=== PATIENT | male | born 1960 | race Caucasian/White ===

== ENCOUNTER 2018-09-06 11:51 | Inpatient (IN) ==
[2018-09-06] MEDS ORDERED: methylPREDNISolone 125 MG/2 ML VIAL IVP ONE (12:57)
[2018-09-06] MEDS ORDERED: Ipratropium/Albuterol Neb 3 ML IH ONE (12:57)
[2018-09-06] MEDS ORDERED: Piperacillin/Tazobactam 3.375 GM in 0.9 % Sodium Chloride Mini Bag 100 ML IVPB ONE (13:01)
--- NOTE | 2018-09-06 13:03 | Emergency Department Note ---
Disposition Clinical Impression: COPD exacerbation, Finger infection Disposition: Admitted As Inpatient Condition: Good Referrals: Agatha Upton CNP [Primary Care Provider] - Forms: ED Satisfaction Letter General Adult HPI - General Chief complaint: ED Shortness of Breath/Dyspnea Stated complaint: COPD,Nausea,Weakness Time Seen by Provider: 09/06/18 12:49 Source: patient Limitations: no limitations Nursing Notes Reviewed: Yes Vital Signs Reviewed: Yes - History of Present Illness HPI Narrative: Patient with significant past medical history including BMI 52, COPD followed by pulmonology at [facility]. Had started feeling short of breath on Monday. Patient had a fall over the weekend. Patient underwent evaluation and was placed on Augmentin. Patient was following up with [facility]. Finger appears to have infection that will need to in the OR. Patient is also having a COPD exacerbation with associated wheezing and shortness of breath worse with exertion. At this time the patient does have significant wheezing bilaterally. He will likely need admission for COPD exacerbation. I did discuss the case with Dr. Lawler. Patient will also undergo debridement of his wound while in the hospital. Pain Scale: 10 - Related Data Home Medications Medication Instructions Recorded Confirmed Gabapentin [Neurontin] 100 mg PO TID 07/25/16 07/25/16 Lisinopril [Zestril] 20 mg PO DAILY 07/25/16 07/25/16 Metoprolol [Lopressor] 25 mg PO BID 07/25/16 07/25/16 hydroCHLOROthiazide 25 mg PO DAILY 07/25/16 07/25/16 [Hydrochlorothiazide] Previous Rx's Medication Instructions Recorded Albuterol Neb [Proventil Neb] 2.5 mg IH Q4HR #40 vial.neb 07/25/16 Ciprofloxacin [Cipro] 500 mg PO BID #20 tablet 07/25/16 Promethazine/Dextromethorphan 5 ml PO Q4-6H #480 syrup 07/25/16 [Promethazine-Dm Syrup] predniSONE [PredniSONE] 40 mg PO DAILY #10 tablet 07/25/16 Allergies Allergy/AdvReac Type Severity Reaction Status Date / Time No Known Allergies Allergy Verified 09/06/18 12:20 Review of Systems: CONSTITUTIONAL: Fevers, chills, weakness, fatigue HEENT: Eyes: No visual changes. Ears, Nose, Throat: No hearing loss, difficulty talking or unable to swallow. SKIN: Infection to the left fourth and fifth digits of the hand as well as cellulitis behind the right knee. CARDIOVASCULAR: No chest pain, chest pressure or chest discomfort. No palpitations or edema. RESPIRATORY: Shortness of breath with cough but no sputum production. GASTROINTESTINAL: No anorexia, nausea, vomiting or diarrhea. No abdominal pain or blood. GENITOURINARY: No burning on urination or hematuria. NEUROLOGICAL: No headache, dizziness, syncope, paralysis, ataxia, numbness or tingling in the extremities. No change in bowel or bladder control. MUSCULOSKELETAL: No muscle pain, back pain, joint pain or stiffness. Past Medical History - Past Medical History Medical history: Reports: COPD, hypertension Surgical history: Reports: colectomy, herniorrhaphy, prostatectomy Psychiatric history: Reports: no psych history - Social History Smoking Status: Former smoker Smokeless Tobacco Status: No Alcohol use: Reports: rarely Drug use: Reports: none Physical Exam General: Mild to moderate respiratory distress but able to talk in near complete sentences. Head: Normocephalic Atraumatic Eyes: PERRL, EOMI ENT: Airway patent, no stridor Neck: supple, no meningismus Chest: Diffuse inspiratory and expiratory wheezing. Cardiac: Regular rate and rhythm, no murmurs, rubs or gallops Abdomen: soft, nontender, nondistended; no guarding, rebound, or tenderness to percussion Musculoskeletal: Calves symmetric, nontender. Skin: Left hand fourth digit with laceration concern for infection. Left fifth digit with partial amputation necrotic tissue to the distal aspect with associated purulent drainage and erythema that extends to the most proximal knuckle. Mild cellulitis to behind the left knee with full range of motion and no underlying crepitus or induration. Neuro: Alert and Oriented to person, place, and time; No obvious focal deficit. - General Limitations: no limitations General appearance: alert, in no apparent distress Course - Reevaluation(s) Reevaluation #1: Overall breathing improved. Patient with lung mass to the left upper chest. Patient will need further evaluation of this in the future. - Consultations Consultation #1: Discussed with Dr. Lawler. Patient to go to the OR for debridement for further and infection source control. Patient to be admitted for COPD exacerbation he will consult on the floor. Consultation #2: Discussed with hospitalistTHALIA, patient accepted for admission. Vital Signs Temperature 98 F 09/06/18 12:16 Pulse Rate 73 09/06/18 12:16 Respiratory Rate 18 09/06/18 12:16 Blood Pressure 202/86 09/06/18 12:16 O2 Sat by Pulse Oximetry 96 09/06/18 12:16 Temperature 98 F 09/06/18 12:16 Pulse Rate 73 09/06/18 12:16 Respiratory Rate 18 09/06/18 12:16 Blood Pressure 202/86 09/06/18 12:16 O2 Sat by Pulse Oximetry 96 09/06/18 12:16 Oxygen Delivery Oxygen Delivery Room Air Medical Decision Making - Lab Data Result diagrams: 09/06/18 12:48 09/06/18 12:48 Lab Results 09/06/18 09/06/18 09/06/18 Range/Units 12:48 12:48 12:48 WBC 6.2 (4.3-11.1) K/mcL RBC 4.75 (4.19-5.50) M/mcL Hgb 14.2 (12.9-16.9) g/dL Hct 41.4 (37.5-50.1) % MCV 87.2 (83.0-100.0) fL MCH 29.9 (28.0-33.3) pg MCHC 34.3 (31.6-35.5) g/dL RDW 13.0 (11.5-14.5) % Plt Count 163 (140-400) K/mcL MPV 10.6 (9.4-12.4) fL Immature Gran % 0.5 (0-4) % Seg Neutrophils % 73.6 % Lymphocytes % 16.5 % Monocytes % 8.6 % Eosinophils % 0.5 % Basophils % 0.3 % Neutrophils # 4.6 (1.6-8.9) K/mcL Lymphocytes # 1.0 (0.6-4.6) K/mcL Monocytes # 0.5 (0.0-1.3) K/mcL Eosinophils # 0.0 (0.0-0.6) K/mcL Basophils # 0.0 (0.0-0.2) K/mcL ESR (0-10) mm/hr Sodium 137 (136-145) mEq/L Potassium 3.5 (3.5-5.1) mEq/L Chloride 102 (98-107) mEq/L Carbon Dioxide 28 (23-29) mEq/L BUN 14 (6-20) mg/dL Creatinine 0.61 L (0.70-1.30) mg/dL Est GFR ( Amer) > 60 (> 60) Est GFR (Non-Af Amer) > 60 (> 60) BUN/Creatinine Ratio 23 (6-26) Glucose 112 H (70-105) mg/dL Calculated Osmolality 285 (280-300) Lactic Acid 0.9 (0.5-2.2) mmol/L Calcium 9.3 (8.6-10.3) mg/dL Troponin I 0.03 (< 0.04) ng/mL C-Reactive Protein 14 H (Less than 10) mg/L B-Natriuretic Peptide (Less than 100) pg/mL 09/06/18 09/06/18 Range/Units 12:48 12:48 WBC (4.3-11.1) K/mcL RBC (4.19-5.50) M/mcL Hgb (12.9-16.9) g/dL Hct (37.5-50.1) % MCV (83.0-100.0) fL MCH (28.0-33.3) pg MCHC (31.6-35.5) g/dL RDW (11.5-14.5) % Plt Count (140-400) K/mcL MPV (9.4-12.4) fL Immature Gran % (0-4) % Seg Neutrophils % % Lymphocytes % % Monocytes % % Eosinophils % % Basophils % % Neutrophils # (1.6-8.9) K/mcL Lymphocytes # (0.6-4.6) K/mcL Monocytes # (0.0-1.3) K/mcL Eosinophils # (0.0-0.6) K/mcL Basophils # (0.0-0.2) K/mcL ESR 24 H (0-10) mm/hr Sodium (136-145) mEq/L Potassium (3.5-5.1) mEq/L Chloride (98-107) mEq/L Carbon Dioxide (23-29) mEq/L BUN (6-20) mg/dL Creatinine (0.70-1.30) mg/dL Est GFR ( Amer) (> 60) Est GFR (Non-Af Amer) (> 60) BUN/Creatinine Ratio (6-26) Glucose (70-105) mg/dL Calculated Osmolality (280-300) Lactic Acid (0.5-2.2) mmol/L Calcium (8.6-10.3) mg/dL Troponin I (< 0.04) ng/mL C-Reactive Protein (Less than 10) mg/L B-Natriuretic Peptide 161 H (Less than 100) pg/mL
[2018-09-06 13:21] LABS: Basophils % 0.3 %; Eosinophils % 0.5 %; Hematocrit 41.4 % (37.5-50.1); Hemoglobin 14.2 g/dL (12.9-16.9); Immature Granulocytes % 0.5 % (0-4); Lymphocytes % 16.5 %; Mean Corpuscular HGB Conc 34.3 g/dL (31.6-35.5); Mean Corpuscular Hemoglobin 29.9 pg (28.0-33.3); Mean Corpuscular Volume 87.2 fL (83.0-100.0); Mean Platelet Volume 10.6 fL (9.4-12.4); Monocytes # 0.5 K/mcL (0.0-1.3); Monocytes % 8.6 %; Neutrophils # 4.6 K/mcL (1.6-8.9); Platelet Count 163 K/mcL (140-400); Red Blood Count 4.75 M/mcL (4.19-5.50); Segmented Neutrophils % 73.6 %
[2018-09-06 13:27] LABS: BUN/Creatinine Ratio 23 (6-26); Blood Urea Nitrogen 14 mg/dL (6-20); Calcium 9.3 mg/dL (8.6-10.3); Carbon Dioxide 28 mEq/L (23-29); Chloride 102 mEq/L (98-107); Glucose 112 mg/dL (70-105); Osmolality,Calculated 285 (280-300); Potassium 3.5 mEq/L (3.5-5.1); Sodium 137 mEq/L (136-145); Troponin I 0.03 ng/mL (< 0.04); eGFR For Non-African Americans > 60 (> 60)
[2018-09-06 13:45] LABS: C-Reactive Protein 14 mg/L (Less than 10)
[2018-09-06] MEDS ORDERED: Naloxone 0.4 MG/ML INJ IVP PRN (14:41)
[2018-09-06] MEDS ORDERED: Acetaminophen 325 MG TABLET PO PRN (14:47)
[2018-09-06] MEDS ORDERED: Ondansetron 4 MG/2 ML VIAL IVP PRN (14:47)
--- NOTE | 2018-09-06 15:07 | Internal Med History&Physical ---
Date of Encounter: 09/06/18 Time of Encounter: 14:30 Internal Medicine - H&P: HPI Chief complaint: SOB, L finger infection Admitted From: Home History of present illness: Mr. Delgado is a 58 year old male with history of hypertension, COPD, morbid obesity who presented to the ED from orthopedic clinic due to shortness of breath. Pt was seeing Dr. Sifuentes today for left fourth and fifth finger infection he noticed that patient was having difficult time breathing and advised the patient to go to the ED for further evaluation. Patient states that he has been having trouble breathing for the last 2 days, associated with cough but without significant sputum production. Denies any chest pain, orthopnea, PND, or worsening leg swelling. No flulike symptoms or sick contacts. He was also on oral Augmentin for his left finger infection that is not resolving and he is being planned for possible washout during the admission. In the ED, he was afebrile and hemodynamically stable. Labwork showed normal white blood cell count and slightly elevated ESR and CRP. Normal lactic acid. Troponin negative. Chest x-ray was negative for acute cardiopulmonary process. He was given IV Solu-Medrol and bronchodilator as well as vanc/zosyn then admitted for further mx with orthopedic consultation. Past Med Surg Social Fam HX - Past Medical History Attestation: Yes The following information was validated with the patient. Medical history: COPD, hypertension Additional medical history: carpal tunnel Psychiatric history: no psych history - Past Surgical History Surgical History: colectomy, herniorrhaphy, prostatectomy Additional surgical history: RIH repair, exploratory lap - Social History Smoking Status: Former smoker Smokeless Tobacco Status: No Alcohol use: rarely Drug use: none - Additional Family History Additional family history: Reviewed and noncontributory Internal Medicine - H&P: Meds Gabapentin [Neurontin] 100 mg PO TID 07/25/16 [History] Metoprolol [Lopressor] 25 mg PO BID 07/25/16 [History] Promethazine/Dextromethorphan [Promethazine-Dm Syrup] 5 ml PO Q4-6H #480 syrup 07/25/16 [Rx] RX: Albuterol Neb [Proventil Neb] 2.5 mg IH Q4HR #40 vial.neb 07/25/16 [Rx] RX: Ciprofloxacin [Cipro] 500 mg PO BID #20 tablet 07/25/16 [Rx] RX: Lisinopril [Zestril] 20 mg PO DAILY 07/25/16 [History] RX: hydroCHLOROthiazide [Hydrochlorothiazide] 25 mg PO DAILY 07/25/16 [History] RX: predniSONE [PredniSONE] 40 mg PO DAILY #10 tablet 07/25/16 [Rx] Allergy/AdvReac Type Severity Reaction Status Date / Time No Known Allergies Allergy Verified 09/06/18 12:20 All Systems PM: A 10-system review of systems was performed and is negative for pertinent findings except as documented above in the HPI. - Constitutional Vitals: Temp Pulse Resp BP Pulse Ox 98 F 78 18 146/62 96 09/06/18 12:16 09/06/18 14:33 09/06/18 14:33 09/06/18 14:33 09/06/18 14:33 Exam: General: Alert and oriented, not in acute distress. HEENT:EOMI, pupils equal, round and reactive. Cardiovascular:Normal S1 & S2, No JVD. Pulse regular. Lungs: Bilateral wheezes Abdomen:Soft, non-tender, no rigidity. Extremities: Left fourth and fifth finger in dressing which is clean, dry, and intact Neurological:Normal cognition and motor skills. Non-focal Skin:Normal color, no rash, no lesions. Pulses:Carotid and radial pulses normal +2. Rest of the physical exam is non contributory Internal Med - H&P Results - Labs CBC & Chem 7: 09/06/18 12:48 09/06/18 12:48 Labs: Short CBC 09/06/18 Range/Units 12:48 WBC 6.2 (4.3-11.1) K/mcL Hgb 14.2 (12.9-16.9) g/dL Hct 41.4 (37.5-50.1) % Plt Count 163 (140-400) K/mcL Neutrophils # 4.6 (1.6-8.9) K/mcL BMP 09/06/18 12:48 Sodium 137 Potassium 3.5 Chloride 102 Carbon Dioxide 28 BUN 14 Creatinine 0.61 L Glucose 112 H Calcium 9.3 Cardiac Enzymes 09/06/18 Range/Units 12:48 Troponin I 0.03 (< 0.04) ng/mL - Impressions ITS Impressions Chest X-Ray 09/06/18 12:21 IMPRESSION: 1. Cardiomegaly without failure. 2. Noncalcified 2.5 cm mass involving the left upper lobe is concerning for malignancy. Tissue sampling is indicated. D/ / 09/06/2018 13:28:42 Fox Torres MD / rae Interpreting Provider: Fox Torres MD - Assessment and Plan (1) COPD exacerbation Current Visit: Yes Status: Acute Assessment and plan: mild exacerbation of COPD not on supplemental O2, CXR -ve for infiltrates given steroid and bronchodilators in the ED, continue abx for finger infection as below Check respiratory viral panel (2) Finger infection Current Visit: Yes Status: Acute Assessment and plan: Failed outpatient therapy on oral Augmentin Started on vancomycin and Zosyn, continue Was seen in the orthopedic clinic today and plan for possible washout tomorrow. Nothing by mouth after midnight Follow-up on blood cultures (3) Mass of left lung Current Visit: Yes Status: Chronic Assessment and plan: Was seen on CT scan on 08/21 outpatient PET-CT (4) HTN (hypertension) Current Visit: No Status: Chronic Assessment and plan: Resume home meds once reconciled Qualifiers: Hypertension type: essential hypertension Qualified Code(s): I10 - Ess ential (primary) hypertension (5) Morbid obesity with BMI of 50.0-59.9, adult Current Visit: Yes Status: Chronic Assessment and plan: Lifestyle modifications emphasized (6) DVT prophylaxis Current Visit: Yes Status: Acute Assessment and plan: SQ heparin - Time Spent With Patient Total time spent is greater than 50% in coordination of care (as documented) at patient's floor/unit and/or counseling patient: 25 - 35 minutes
[2018-09-06] MEDS: Ipratropium/Albuterol Neb 3 ML IH SCH ×2 (15:17→20:39)
--- NOTE | 2018-09-06 17:27 | Orthopedics Progress Note ---
Date of Encounter: 09/06/18 Time of Encounter: 17:25 Subjective Interval history: S: Seen in the office earlier today now here in the emergency department. Less than a week ago injured the ring and small fingers while walking his dog, was the cord got wrapped around the digits causing the injury. Also sustained an injury to the back of the right knee. Wounds appear to have early infection though he went to the emergency department today due to a COPD exacerbation and is getting admitted. O: Afebrile on the vital signs are stable Left small finger with soft tissue loss and ring finger with ulnar sided laceration as described in my office note Neurovascularly intact distally; wound edges with mild erythema Right posterior knee wound, superficial abrasion with mild cellulitis. No drain able abscess. A: Left small finger and ring finger tip injuries, the left with tissue loss and likely exposed bone COPD exacerbation P: We will proceed to the operating room tomorrow for debridement and irrigation of the left ring and small fingers with trimming of the bone of the left small finger Nothing by mouth after midnight Continue antibiotics per the primary team for the cellulitis Objective Vital signs: Vital Signs Temp Pulse Resp BP Pulse Ox 09/06/18 15:38 73 18 146/61 95 09/06/18 14:33 78 18 146/62 96 09/06/18 12:16 98 F 73 18 202/86 96 Intake and Output 09/06/18 09/06/18 09/06/18 07:59 15:59 23:59 Intake Total 100 / 100 Balance 100 / 100 Intake: IV Fluids 100 / 100 Zosyn 3.375 GM In 0.9 % Sodium 100 / 100 Chloride (Mini-Bag +) 100 ML @ 25 mls/hr IVPB ONCE ONE Rx#: [id number] Other: Weight 147.418 kg Patient Weight 09/06/18 23:59 Weight 147.418 kg - Labs CBC & BMP: 09/06/18 12:48 09/06/18 12:48 Labs: Abnormal lab results ESR 24 mm/hr (0-10) H 09/06/18 12:48 Creatinine 0.61 mg/dL (0.70-1.30) L 09/06/18 12:48 Glucose 112 mg/dL (70-105) H 09/06/18 12:48 C-Reactive Protein 14 mg/L (Less than 10) H 09/06/18 12:48 B-Natriuretic Peptide 161 pg/mL (Less than 100) H 09/06/18 12:48 Consult Discharge Plan - Plan Referrals: Agatha Upton, PROFESSOR OF PUBLIC ADMINISTRATION [Primary Care Provider] -
[2018-09-06] MEDS: *HR* OxyCODONE Immed Rel 5 MG TABLET PO PRN (20:46)
[2018-09-06] MEDS: Piperacillin/Tazobactam 3.375 GM in 0.9 % Sodium Chloride Mini Bag 100 ML IVP SCH (22:35)
[2018-09-07] MEDS: Ipratropium/Albuterol Neb 3 ML IH SCH ×6 (00:10→19:24)
[2018-09-07 04:53] LABS: Eosinophils % 0.1 %; Hematocrit 42.2 % (37.5-50.1); Hemoglobin 14.3 g/dL (12.9-16.9); Lymphocytes # 0.8 K/mcL (0.6-4.6); Lymphocytes % 11.1 %; Mean Corpuscular HGB Conc 33.9 g/dL (31.6-35.5); Mean Corpuscular Volume 88.7 fL (83.0-100.0); Monocytes # 0.4 K/mcL (0.0-1.3); Monocytes % 5.6 %; Platelet Count 159 K/mcL (140-400); Red Blood Count 4.76 M/mcL (4.19-5.50); Red Cell Distribution Width 12.9 % (11.5-14.5); Segmented Neutrophils % 82.2 %
[2018-09-07 05:00] LABS: INR 1.1; Prothrombin Time 12.6 Seconds (9.4-12.1)
[2018-09-07 05:11] LABS: BUN/Creatinine Ratio 24 (6-26); Blood Urea Nitrogen 17 mg/dL (6-20); Calcium 9.1 mg/dL (8.6-10.3); Carbon Dioxide 28 mEq/L (23-29); Chloride 104 mEq/L (98-107); Glucose 125 mg/dL (70-105); Osmolality,Calculated 277 (280-300); Potassium 3.9 mEq/L (3.5-5.1); Sodium 132 mEq/L (136-145); eGFR For Non-African Americans > 60 (> 60)
[2018-09-07] MEDS: Piperacillin/Tazobactam 3.375 GM in 0.9 % Sodium Chloride Mini Bag 100 ML IVP SCH ×3 (06:38→22:39)
[2018-09-07] MEDS: MethylPREDNISolone 40 MG/ML VIAL IVP SCH ×2 (06:38→17:09)
[2018-09-07] MEDS: *HR* OxyCODONE Immed Rel 5 MG TABLET PO PRN ×3 (08:01→20:39)
[2018-09-07 08:48] LABS: Adenovirus Not Detected (Not Detect); Bordetella Pertussis Not Detected (Not Detect); Chlamydophila pneumoniae Not Detected (Not Detect); Coronavirus 229E Not Detected (Not Detect); Coronavirus HKU1 Not Detected (Not Detect); Coronavirus NL63 Not Detected (Not Detect); Coronavirus OC43 Not Detected (Not Detect); Human Metapneumovirus Not Detected (Not Detect); Human Rhinovirus/Enterovirus Not Detected (Not Detect); Influenza A Subtype 2009 H1 Not Detected (Not Detect); Influenza A Untypeable Not Detected (Not Detect); Influenza B Not Detected (Not Detect); Mycoplasma pneumoniae Not Detected (Not Detect); Parainfluenza Virus 1 Not Detected (Not Detect); Parainfluenza Virus 2 Not Detected (Not Detect); Parainfluenza Virus 3 Not Detected (Not Detect); Parainfluenza Virus 4 Not Detected (Not Detect); Respiratory Syncytial Virus Not Detected (Not Detect)
[2018-09-07] MEDS ORDERED: Lidocaine/EPI 1:100k 1% 20 ML VIAL ONE (12:05)
--- NOTE | 2018-09-07 14:41 | Internal Med Progress Note ---
Hospitalist Progress Note - Encounter Date of Encounter: 09/07/18 Time of Encounter: 09:45 - Subjective Interval History: Patient states his shortness of breath is significantly improved after steroids as treatment since he came in last night. He endorses dyspnea on exertion which has gotten worse since he was switched from his outpatient COPD management ( Breo to atrovent) and has been following with pulmonary medicine as an outpatient. - Exam Vitals: Temp Pulse Resp BP Pulse Ox 98.4 F 77 18 147/80 96 09/07/18 13:25 09/07/18 13:25 09/07/18 13:25 09/07/18 13:25 09/07/18 13:25 Exam: GENERAL: Alert, no distress, cooperative EYES: PERRLA, EOMI EARS: External ears normal, canals clear OROPHARYNX: Lips, mucosa, and tongue normal. Teeth and gums normal. Oropharynx normal. NECK: No jugulovenous distention, No carotid bruits, Carotid pulse normal contour, Supple LUNGS: Lungs clear to auscultation, Good diaphragmatic excursion CARDIAC: Normal S1 and S2; no rubs, murmurs, or gallops ABDOMEN: Abdomen soft, non-tender, BS normal, No masses or organomegaly EXTREMITIES: Extremities left hand little finger and ring finger has bandages on it and not removed for patient preference. There is significant erythema that is seen extending beyond the bandages on both these fingers as well as the middle finger with what appears to be scaling wounds as well. - Assessment and Plan (1) COPD exacerbation Current Visit: Yes Status: Acute Assessment and Plan: Continue steroids for now. Continue breathing treatments. Consider pulmonary consultation if his shortness of breath does not improve. Given his dyspnea on exertion, also going to check out a 2-D echo to make sure there is no cardiac component. If the echo is abnormal, consider cardio consultation (2) Finger infection Current Visit: Yes Status: Acute Assessment and Plan: He had an accidental amputation of his left little finger distally and subsequent infection for which she failed outpatient management of his middle finger, ring finger, middle finger. The plan is to take him to the OR today for debridement. He did receive antibiotics broad-spectrum and we will continue them until cultures are back. Pain control seems adequate at this point (3) HTN (hypertension) Current Visit: No Status: Chronic Assessment and Plan: Stable. Continue to monitor (4) Morbid obesity with BMI of 50.0-59.9, adult Current Visit: Yes Status: Chronic Assessment and Plan: Dietary education provided regarding obesity (5) DVT prophylaxis Current Visit: Yes Status: Acute (6) Mass of left lung Current Visit: Yes Status: Chronic Assessment and Plan: This will be deferred to outpatient. Apparently he has already had a biopsy and was told it was negative. To follow up with pulmonary as an outpatient upon discharge - Time Spent with Patient Total time spent is greater than 50% in coordination of care (as documented) at patient's floor/unit and/or counseling patient: 25 - 35 minutes Plan of Care Discussed with: patient Internal Medicine: Result - Labs CBC & Chem 7: 09/07/18 04:30 09/07/18 04:30 Labs: Short CBC 09/07/18 Range/Units 04:30 WBC 7.3 (4.3-11.1) K/mcL Hgb 14.3 (12.9-16.9) g/dL Hct 42.2 (37.5-50.1) % Plt Count 159 (140-400) K/mcL Neutrophils # 6.0 (1.6-8.9) K/mcL BMP 09/07/18 04:30 Sodium 132 L Potassium 3.9 Chloride 104 Carbon Dioxide 28 BUN 17 Creatinine 0.70 Glucose 125 H Calcium 9.1 - ABG Interpretation ABG results: PT/INR, D-dimer PT 12.6 Seconds (9.4-12.1) H 09/07/18 04:30 Consult Discharge Plan - Plan Referrals: Agatha Upton, DRIVER/REFUSE COLLECTOR [Primary Care Provider] - (3) HTN (hypertension) Qualifiers: Hypertension type: essential hypertension Qualified Code(s): I10 - Essential (primary) hypertension
--- NOTE | 2018-09-07 14:55 | Electrocardiograph Report ---
[place] [id number] Test Date: 2018-09-07 Pat Name: Latrell Delgado Department: 115 Room: 3A25 Gender: M Package Maker: : [id number] Requested By: Annie Duque Order Number: [id number] Reading MD: Yeni Reilly Measurements Intervals [place] Rate: 71 P: 66 MS: 156 QRS: 34 QRSD: 102 T: 36 QT: 429 QTc: 452 Interpretive Statements SINUS RHYTHM LOW QRS VOLTAGE IN PRECORDIAL LEADS Electronically Signed On 09-07-2018 14:53:46 EST by Yeni Reilly
[2018-09-07] MEDS ORDERED: Perflutren Lipid Microsphere 1.3 ML in 0.9 % Sodium Chloride 8.7 ML IVP ONE (15:06)
--- NOTE | 2018-09-07 15:23 | Orthopedic Operative Note ---
Date of procedure: 09/07/18 Procedure: OPERATIVE REPORT SURGEON: Carlos Sifuentes MD PREOPERATIVE DIAGNOSIS: Left small and ring finger injuries with infection POSTOPERATIVE DIAGNOSIS: Same PROCEDURE: Debridement and irrigation of the left small finger including skin, subcutaneous tissue, and bone with partial wound closure. Debridement and irrigation of the left ring finger. ANESTHESIA: Local anesthesia SPECIMENS: With swabs of the left small finger were sent for wound culture PREOPERATIVE NOTE The surgical plan was reviewed with the patient. The risks, benefits, alternatives, and potential complications of this procedure were discussed with the patient including injury to veins, arteries, nerves, tendons, ligaments, and bone. Also discussed were the risks of infection, bleeding, pain, blood clots, the possible need for a blood transfusion, the possible need for further procedures, heart attack, stroke, and . Additional risks include persistent infection requiring multiple debridements. All of this was explained in simple terms, and the patient verbalized understanding and wished to proceed. Consent was given to proceed with surgery. PROCEDURE: The patient was seen in the preoperative holding area where the identify and the consent were confirmed. The small and ring fingers were marked. The local was given to the small and ring fingers. Final questions were answered. The patient was brought back to the operating room and placed supine on the operating room table. A huddle was performed with the patient and all vital surgical team members confirming patient identity, the correct procedure, and the correct operative site. The operative extremity was prepped and draped in the usual sterile fashion. A surgical time out was performed immediately preceding the incision with all personnel in the operating room to confirm patient identity, the correct operative site and extremity, correct radiographic studies, availability of appropriate surgical equipment, and agreement on the planned procedure. A teresa tourniquet was placed on the small finger. The fingertip was evalu ated and there is noted to be thick black eschar over the tip from the prior chemical cauterization. This was sharply removed skin edges were freshened. Mild purulence was noted at the tip of the digit which was swabbed for culture. The distal phalanx was noted to be fractured at the tip and was debrided back 4 mm to allow for wound closure. The wound was copiously irrigated and loosely closed with interrupted nylon stitches. The [place] drain was taken off and the finger pinked up nicely. Attention was directed to the ring finger which had a izabella-circumferential wound along the aspect. There is a small area dorsally with necrotic debris that was sharply debrided. No purulence was noted. The wound was copiously irrigated and left open to drain. Soft, sterile dressings were applied to the ring and the small finger. The instrument, sponge, and needle counts were correct after wound closure. POST OPERATIVE PLAN: Daily local wound care with dressing changes and peroxide soaks. Oral Abx upon discharge. Follow up in the office in 1 week for reevaluation of the wounds. Was there an assistant family teacher present: No Estimated blood loss (cc): 1
[2018-09-07] MEDS: *HR* Heparin 5,000 UNIT/ML VIAL SQ SCH (17:09)
[2018-09-07] MEDS: traMADol 50 MG TABLET PO PRN (18:49)
[2018-09-08] MEDS: Ipratropium/Albuterol Neb 3 ML IH SCH ×6 (00:18→20:52)
[2018-09-08] MEDS: *HR* OxyCODONE Immed Rel 5 MG TABLET PO PRN ×4 (02:24→22:16)
[2018-09-08] MEDS: *HR* Heparin 5,000 UNIT/ML VIAL SQ SCH ×2 (05:51→17:12)
[2018-09-08] MEDS: MethylPREDNISolone 40 MG/ML VIAL IVP SCH (05:51)
[2018-09-08] MEDS: Piperacillin/Tazobactam 3.375 GM in 0.9 % Sodium Chloride Mini Bag 100 ML IVP SCH ×3 (05:52→21:00)
[2018-09-08] MEDS: Lisinopril 20 MG TABLET PO SCH (09:33)
--- NOTE | 2018-09-08 13:39 | Orthopedics Progress Note ---
Date of Encounter: 09/08/18 Time of Encounter: 13:37 Subjective Interval history: No new ortho issues. Pain is controlled. Vitals reviewed Extremity exam: Dressing clean, dry and intact No erythema or drainage Distally neurovascularly intact to motor/sensory exam No calf pain or tenderness s/p left small and ring finger I&D Continue current management Continue dressing changes as scheduled d/c planning per hospitalist Objective Vital signs: Vital Signs Temp Pulse Resp BP Pulse Ox 09/08/18 12:10 20 96 09/08/18 10:57 97.5 F L 75 26 162/94 94 09/08/18 09:35 97 09/08/18 07:31 22 97 09/08/18 07:19 97.4 F L 66 22 148/73 97 09/08/18 04:33 18 98 09/08/18 03:08 97.8 F 63 16 120/72 95 09/08/18 00:18 16 93 09/07/18 22:31 97.5 F L 65 18 166/98 93 09/07/18 20:20 98.0 F 78 16 173/103 95 09/07/18 19:25 18 94 09/07/18 16:16 20 98 Intake and Output 09/07/18 09/08/18 09/08/18 23:59 07:59 15:59 Intake Total 580 / 580 1340 / 1340 220 / 220 Output Total 0 / 0 350 / 350 550 / 550 Balance 580 / 580 990 / 990 -330 / -330 Intake: IV Fluids 100 / 100 1100 / 1100 100 / 100 Zosyn 3.375 GM In 0.9 % Sodium 100 / 100 100 / 100 100 / 100 Chloride (Mini-Bag +) 100 ML @ 25 mls/hr IVP Q8H [facility] Rx#: [id number] Oral 480 / 480 240 / 240 120 / 120 Output: Urine 0 / 0 350 / 350 550 / 550 Other: Meal Breakfast Percent of Meal Consumed 75% # Voids 1 Weight 152.3 kg Patient Weight 09/08/18 23:59 Weight 152.3 kg - Labs CBC & BMP: 09/07/18 04:30 09/07/18 04:30 Labs: Abnormal lab results ESR 24 mm/hr (0-10) H 09/06/18 12:48 PT 12.6 Seconds (9.4-12.1) H 09/07/18 04:30 Sodium 132 mEq/L (136-145) L 09/07/18 04:30 Glucose 125 mg/dL (70-105) H 09/07/18 04:30 POC Glucose 116 mg/dL (70-99) H 09/07/18 05:24 Calculated Osmolality 277 (280-300) L 09/07/18 04:30 C-Reactive Protein 14 mg/L (Less than 10) H 09/06/18 12:48 B-Natriuretic Peptide 161 pg/mL (Less than 100) H 09/06/18 12:48 Consult Discharge Plan - Plan Referrals: Agatha Upton, STRATEGIC PARTNER DEVELOPMENT MANAGER [Primary Care Provider] -
[2018-09-08] MEDS: methylPREDNISolone 125 MG/2 ML VIAL IVP SCH (16:05)
--- NOTE | 2018-09-08 17:10 | Internal Med Progress Note ---
Hospitalist Progress Note - Encounter Date of Encounter: 09/08/18 Time of Encounter: 17:00 - Subjective Interval History: 58 year old male with history of hypertension, COPD, morbid obesity who presented to the ED from orthopedic clinic due to shortness of breath. Pt was seeing Dr. Sifuentes today for left fourth and fifth finger infection he noticed that patient was having difficult time breathing and advised the patient to go to the ED for further evaluation. Patient states that he has been having trouble breathing for the last 2 days, associated with cough but without significant sputum production. Denies any chest pain, orthopnea, PND, or wo rsening leg swelling. - Exam Vitals: Temp Pulse Resp BP Pulse Ox 97.8 F 75 15 134/76 96 09/08/18 14:31 09/08/18 14:31 09/08/18 16:44 09/08/18 14:31 09/08/18 16:44 Exam: GENERAL: Alert, no distress, cooperative EYES: PERRLA, EOMI EARS: External ears normal, canals clear OROPHARYNX: Lips, mucosa, and tongue normal. Teeth and gums normal. Oropharynx normal. NECK: No jugulovenous distention, No carotid bruits, Carotid pulse normal contour, Supple LUNGS: Lungs clear to auscultation, Good diaphragmatic excursion CARDIAC: Normal S1 and S2; no rubs, murmurs, or gallops ABDOMEN: Abdomen soft, non-tender, BS normal, No masses or organomegaly EXTREMITIES: Extremities left hand little finger and ring finger has bandages on it and not removed for patient preference. There is significant erythema that is seen extending beyond the bandages on both these fingers as well as the middle finger with what appears to be scaling wounds as well. 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 s/p debridement by orthopedic surgery. Stable. continue on vanc and zosyn (3) HTN (hypertension) Current Visit: No Status: Chronic Assessment and Plan: Stable. Continue to monitor (4) Morbid obesity with BMI of 50.0-59.9, adult Current Visit: Yes Status: Chronic Assessment and Plan: Dietary education provided regarding obesity (5) Mass of left lung Current Visit: Yes Status: Chronic Assessment and Plan: This will be deferred to outpatient. Apparently he has already had a biopsy and was told it was negative. To follow up with pulmonary as an outpatient upon discharge (6) DVT prophylaxis Current Visit: Yes Status: Acute Assessment and Plan: SQ heparin - Time Spent with Patient Total time spent is greater than 50% in coordination of care (as documented) at patient's floor/unit and/or counseling patient: Internal Medicine: Result - Labs CBC & Chem 7: 09/07/18 04:30 09/07/18 04:30 - ABG Interpretation ABG results: PT/INR, D-dimer PT 12.6 Seconds (9.4-12.1) H 09/07/18 04:30 - Impressions Impressions Echocardiogram 09/07/18 10:29 Impressions: Technically sub-optimal due to body habitus. LVEF 60-65%. Mild concentric left ventricular hypertrophy. Normal left ventricular diastolic function. The right ventricle was not well visualized Unable to estimate RVSP due to lack of TR jet. No obvious significant valvular dysfunction. Left Ventricular Wall Motion: Rest Echo Findings All wall segments showed normal motion. Findings: Study Quality * Technically sub-optimal due to body habitus. ECG Findings * Normal sinus rhythm. Left Ventricle * LVEF 60-65%. * Mild concentric left ventricular hypertrophy. * Normal left ventricular diastolic function. * Definity echo contrast was used. Right Ventricle * The right ventricle was not well visualized Left Atrium * Normal left atrial size. Right Atrium * Normal right atrial size. Interatrial Septum * Interatrial septum not well evaluated. Aortic Valve * Aortic valve not well visualized. * No aortic regurgitation. * No aortic stenosis. Mitral Valve * Mitral valve not well visualized. * No mitral regurgitation. * No mitral stenosis. Tricuspid Valve * Trace tricuspid regurgitation. * No tricuspid stenosis. * Unable to estimate RVSP due to lack of TR jet. * Tricuspid valve not well visualized. Pulmonic Valve * Pulmonic valve not well visualized. Aorta * Normally sized aortic root. Pericardium * The pericardium appears normal. IVC * The IVC is not well evaluated. Pulmonary Artery * Pulmonary artery not well visualized. Consult Discharge Plan - Plan Referrals: Agatha Upton LABOR CONCILIATOR [Primary Care Provider] - (3) HTN (hypertension) Qualifiers: Hypertension type: essential hypertension Qualified Code(s): I10 - Essential (primary) hypertension
[2018-09-08] MEDS: Budesonide/Formoterol 160/4.5 1 PUFF INH IH SCH (21:04)
[2018-09-09] MEDS: methylPREDNISolone 125 MG/2 ML VIAL IVP SCH ×4 (00:06→23:47)
[2018-09-09] MEDS: Ipratropium/Albuterol Neb 3 ML IH SCH ×7 (00:34→23:15)
[2018-09-09 04:33] LABS: BUN/Creatinine Ratio 42 (6-26); Blood Urea Nitrogen 32 mg/dL (6-20); eGFR For Non-African Americans > 60 (> 60)
[2018-09-09] MEDS: Piperacillin/Tazobactam 3.375 GM in 0.9 % Sodium Chloride Mini Bag 100 ML IVP SCH ×3 (06:18→21:19)
[2018-09-09] MEDS: *HR* Heparin 5,000 UNIT/ML VIAL SQ SCH ×2 (06:19→16:55)
[2018-09-09] MEDS: Budesonide/Formoterol 160/4.5 1 PUFF INH IH SCH ×2 (07:37→20:44)
--- NOTE | 2018-09-09 09:09 | Orthopedics Progress Note ---
Date of Encounter: 09/09/18 Time of Encounter: 09:07 Subjective Interval history: No new ortho issues. Pain is controlled. Vitals reviewed Extremity exam: Dressing clean, dry and intact No erythema or drainage Distally neurovascularly intact to motor/sensory exam No calf pain or tenderness s/p left small and ring finger I&D Continue current management Continue dressing changes as scheduled d/c planning per hospitalist, f/u with Dr Sifuentes 1 week postop Objective Vital signs: Vital Signs Temp Pulse Resp BP Pulse Ox 09/09/18 07:37 18 99 09/09/18 06:26 97.5 F L 64 20 133/73 97 09/09/18 04:36 16 94 09/09/18 03:22 97.9 F 67 15 138/73 97 09/09/18 00:34 16 96 09/09/18 00:14 97.8 F 70 18 163/91 95 09/08/18 21:05 16 99 09/08/18 19:18 97.9 F 65 15 148/76 96 09/08/18 16:44 15 96 09/08/18 14:31 97.8 F 75 15 134/76 96 09/08/18 12:10 20 96 09/08/18 10:57 97.5 F L 75 26 162/94 94 09/08/18 09:35 97 Intake and Output 09/08/18 09/09/18 09/09/18 23:59 07:59 15:59 Intake Total 710 / 710 350 / 350 Output Total 0 / 0 475 / 475 Balance 710 / 710 -125 / -125 Intake: IV Fluids 350 / 350 350 / 350 Zosyn 3.375 GM In 0.9 % Sodium 100 / 100 100 / 100 Chloride (Mini-Bag +) 100 ML @ 25 mls/hr IVP Q8H [facility] Rx#: [id number] Vancocin 1,500 MG In 0.9 % 250 / 250 250 / 250 Sodium Chloride 250 ML @ 166.67 mls/hr IVPB Q12H [facility] Rx#: [id number] Oral 360 / 360 0 / 0 Output: Urine 0 / 0 475 / 475 Other: Meal Dinner Percent of Meal Consumed 100% Weight 152.1 kg Patient Weight 09/09/18 23:59 Weight 152.1 kg - Labs CBC & BMP: 09/07/18 04:30 09/09/18 03:50 Labs: Abnormal lab results ESR 24 mm/hr (0-10) H 09/06/18 12:48 PT 12.6 Seconds (9.4-12.1) H 09/07/18 04:30 Sodium 132 mEq/L (136-145) L 09/07/18 04:30 BUN 32 mg/dL (6-20) H 09/09/18 03:50 BUN/Creatinine Ratio 42 (6-26) H 09/09/18 03:50 Glucose 125 mg/dL (70-105) H 09/07/18 04:30 POC Glucose 116 mg/dL (70-99) H 09/07/18 05:24 Calculated Osmolality 277 (280-300) L 09/07/18 04:30 C-Reactive Protein 14 mg/L (Less than 10) H 09/06/18 12:48 B-Natriuretic Peptide 161 pg/mL (Less than 100) H 09/06/18 12:48 Consult Discharge Plan - Plan Referrals: Agatha Upton, [employer] IR[employer]ER [Primary Care Provider] -
[2018-09-09] MEDS: Lisinopril 20 MG TABLET PO SCH (09:45)
[2018-09-09] MEDS: traMADol 50 MG TABLET PO PRN (09:45)
--- NOTE | 2018-09-09 12:57 | Electrocardiograph Report ---
[employer] Test Date: 2018-09-06 Pat Name: Latrell Delgado Department: 104 Room: 3A25 Gender: M Provisioning Analyst: [facility] : 1960 Requested By: Ad Lee Order Number: [id number] Reading MD: Aleksandr Mcdermott Measurements Intervals [place] Rate: 68 P: 56 SD: 148 QRS: -14 QRSD: 104 T: 38 QT: 424 QTc: 442 Interpretive Statements SINUS RHYTHM LOW QRS VOLTAGE IN PRECORDIAL LEADS POSSIBLE ANTERIOR MYOCARDIAL INFARCTION, OF INDETERMINATE AGE Electronically Signed On 09-09-2018 12:55:55 EST by Aleksandr Mcdermott
[2018-09-09] MEDS: *HR* LORazepam 2 MG/ML VIAL IVP PRN ×2 (13:48→21:20)
--- NOTE | 2018-09-09 16:23 | Internal Med Progress Note ---
Hospitalist Progress Note - Encounter Date of Encounter: 09/09/18 Time of Encounter: 16:00 - Subjective Interval History: 58 year old male with history of hypertension, COPD, morbid obesity who presented to the ED from orthopedic clinic due to shortness of breath. Pt was seeing Dr. Sifuentes today for left fourth and fifth finger infection he noticed that patient was having difficult time breathing and advised the patient to go to the ED for further evaluation. Patient states that he has been having trouble breathing for the last 2 days, associated with cough but without significant sputum production. Denies any chest pain, orthopnea, PND, or wor sening leg swelling - Exam Vitals: Temp Pulse Resp BP Pulse Ox 98.1 F 73 20 156/91 95 09/09/18 14:58 09/09/18 14:58 09/09/18 14:58 09/09/18 14:58 09/09/18 14:58 Exam: GENERAL: Alert, no distress, cooperative EYES: PERRLA, EOMI EARS: External ears normal, canals clear OROPHARYNX: Lips, mucosa, and tongue normal. Teeth and gums normal. Oropharynx normal. NECK: No jugulovenous distention, No carotid bruits, Carotid pulse normal contour, Supple LUNGS: Lungs clear to auscultation, Good diaphragmatic excursion CARDIAC: Normal S1 and S2; no rubs, murmurs, or gallops ABDOMEN: Abdomen soft, non-tender, BS normal, No masses or organomegaly EXTREMITIES: Extremities left hand little finger and ring finger has bandages on it and not removed for patient preference. There is significant erythema that is seen extending beyond the bandages on both these fingers as well as the middle finger with what appears to be scaling wounds as well. 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 s/p debridement by orthopedic surgery. Stable. continue on vanc and zosyn (3) HTN (hypertension) Current Visit: Yes Status: Chronic Assessment and Plan: Stable. Continue to monitor (4) Morbid obesity with BMI of 50.0-59.9, adult Current Visit: Yes Status: Chronic Assessment and Plan: Dietary education provided regarding obesity (5) Mass of left lung Current Visit: Yes Status: Chronic Assessment and Plan: This will be deferred to outpatient. Apparently he has already had a biopsy and was told it was negative. To follow up with pulmonary as an outpatient upon discharge (6) DVT prophylaxis Current Visit: Yes Status: Acute Assessment and Plan: SQ heparin - Time Spent with Patient Total time spent is greater than 50% in coordination of care (as documented) at patient's floor/unit and/or counseling patient: Internal Medicine: Result - Labs CBC & Chem 7: 09/07/18 04:30 09/09/18 03:50 Labs: BMP 09/09/18 03:50 BUN 32 H Creatinine 0.76 - ABG Interpretation ABG results: PT/INR, D-dimer PT 12.6 Seconds (9.4-12.1) H 09/07/18 04:30 Consult Discharge Plan - Plan Referrals: Agatha Upton, RN RECRUITMENT [Primary Care Provider] - (3) HTN (hypertension) Qualifiers: Hypertension type: essential hypertension Qualified Code(s): I10 - Essential (primary) hypertension
[2018-09-09 16:35] LABS: ABG Base Excess 5 mEq/L (-2 to 3); ABG HCO3 31 mEq/L (21-27); ABG Oxygen Saturation 97 % (95-98); ABG PCO2 50 mmHg (35-45); ABG PO2 91 mmHg (85-104); ABG TCO2 33 mEq/L (20-26)
[2018-09-09] MEDS: *HR* OxyCODONE Immed Rel 5 MG TABLET PO PRN (21:20)
[2018-09-10 03:14] LABS: Basophils % 0.2 %; Hematocrit 40.8 % (37.5-50.1); Hemoglobin 13.3 g/dL (12.9-16.9); Immature Granulocytes % 1.1 % (0-4); Lymphocytes # 0.5 K/mcL (0.6-4.6); Lymphocytes % 7.3 %; Mean Corpuscular HGB Conc 32.6 g/dL (31.6-35.5); Mean Corpuscular Hemoglobin 29.4 pg (28.0-33.3); Mean Corpuscular Volume 90.1 fL (83.0-100.0); Mean Platelet Volume 10.9 fL (9.4-12.4); Monocytes # 0.4 K/mcL (0.0-1.3); Monocytes % 6.1 %; Neutrophils # 5.6 K/mcL (1.6-8.9); Platelet Count 161 K/mcL (140-400); Red Blood Count 4.53 M/mcL (4.19-5.50); Segmented Neutrophils % 85.3 %
[2018-09-10 03:29] LABS: BUN/Creatinine Ratio 43 (6-26); Blood Urea Nitrogen 36 mg/dL (6-20); Carbon Dioxide 31 mEq/L (23-29); Chloride 108 mEq/L (98-107); Glucose 144 mg/dL (70-105); Osmolality,Calculated 299 (280-300); Potassium 4.3 mEq/L (3.5-5.1); Sodium 139 mEq/L (136-145); eGFR For Non-African Americans > 60 (> 60)
[2018-09-10] MEDS: Ipratropium/Albuterol Neb 3 ML IH SCH ×6 (04:43→23:53)
[2018-09-10] MEDS: *HR* Heparin 5,000 UNIT/ML VIAL SQ SCH ×2 (05:17→17:27)
[2018-09-10] MEDS: Piperacillin/Tazobactam 3.375 GM in 0.9 % Sodium Chloride Mini Bag 100 ML IVP SCH (05:17)
[2018-09-10] MEDS: Budesonide/Formoterol 160/4.5 1 PUFF INH IH SCH ×2 (07:28→20:03)
[2018-09-10] MEDS ORDERED: Aminoglycoside Consult 1 EACH MC ONE (07:36)
--- NOTE | 2018-09-10 09:37 | Orthopedics Progress Note ---
Date of Encounter: 09/10/18 Time of Encounter: 09:34 Subjective Interval history: S: No events over the weekend regarding the left ring and small finger or right knee. Improved pain to all locations. O: Afebrile on the vital signs are stable Left small finger and ring finger wounds healing very nicely without any redness or purulence. Erythema is resolved. The patient can actively flex and extend all digits, extend the thumb, cross the index and long fingers, make an okay sign, and oppose the thumb. The fingertips are all grossly sensate and well-perfused, and the radial artery pulse is 2+. The back of the right knee was evaluated in the cellulitis has resolved. The abrasion is healing nicely. A: Post I&D of the left ring and small fingers. P: At this point the patient can be transitioned to oral antibiotics. I anticipate a 7 day course. Orthopedic was stable for discharge I instructed the patient on daily dressing changes at home. Follow-up with me in 1 week for stitch removal. Objective Vital signs: Vital Signs Temp Pulse Resp BP Pulse Ox 09/10/18 07:28 16 96 09/10/18 07:15 97.9 F 64 16 150/78 94 09/10/18 06:38 154/88 09/10/18 04:43 14 95 09/10/18 04:40 97.8 F 67 18 172/85 94 09/09/18 23:53 70 18 158/83 94 09/09/18 23:15 16 97 09/09/18 20:44 14 95 09/09/18 20:07 97.9 F 74 20 164/74 96 09/09/18 16:30 20 97 09/09/18 14:58 98.1 F 73 20 156/91 95 09/09/18 11:27 16 98 09/09/18 10:16 98.0 F 85 15 149/73 95 Intake and Output 09/09/18 09/10/18 09/10/18 23:59 07:59 15:59 Intake Total 340 / 340 100 / 100 Output Total 350 / 350 400 / 400 Balance -10 / -10 -300 / -300 Intake: IV Fluids 100 / 100 100 / 100 Zosyn 3.375 GM In 0.9 % Sodium 100 / 100 100 / 100 Chloride (Mini-Bag +) 100 ML @ 25 mls/hr IVP Q8H [facility] Rx#: [id number] Oral 240 / 240 0 / 0 Output: Urine 350 / 350 400 / 400 Other: Meal Dinner Percent of Meal Consumed 100% # Bowel Movements 0 - Labs CBC & BMP: 09/10/18 03:00 09/10/18 03:00 Labs: Abnormal lab results Lymphocytes # 0.5 K/mcL (0.6-4.6) L 09/10/18 03:00 ESR 24 mm/hr (0-10) H 09/06/18 12:48 PT 12.6 Seconds (9.4-12.1) H 09/07/18 04:30 ABG pCO2 50 mmHg (35-45) H 09/09/18 16:32 ABG HCO3 31 mEq/L (21-27) H 09/09/18 16:32 ABG Total CO2 33 mEq/L (20-26) H 09/09/18 16:32 ABG Base Excess 5 mEq/L (-2 to 3) H 09/09/18 16:32 Chloride 108 mEq/L (98-107) H 09/10/18 03:00 Carbon Dioxide 31 mEq/L (23-29) H 09/10/18 03:00 BUN 36 mg/dL (6-20) H 09/10/18 03:00 BUN/Creatinine Ratio 43 (6-26) H 09/10/18 03:00 Glucose 144 mg/dL (70-105) H 09/10/18 03:00 POC Glucose 116 mg/dL (70-99) H 09/07/18 05:24 C-Reactive Protein 14 mg/L (Less than 10) H 09/06/18 12:48 B-Natriuretic Peptide 161 pg/mL (Less than 100) H 09/06/18 12:48 Consult Discharge Plan - Plan Referrals: Agatha Upton, VP SOFTWARE ENGINEERING [Primary Care Provider] -
[2018-09-10] MEDS: Lisinopril 20 MG TABLET PO SCH (10:18)
[2018-09-10] MEDS: methylPREDNISolone 125 MG/2 ML VIAL IVP SCH (10:18)
[2018-09-10] MEDS: *HR* LORazepam 2 MG/ML VIAL IVP PRN ×2 (10:19→21:17)
--- NOTE | 2018-09-10 15:00 | Internal Med Progress Note ---
Hospitalist Progress Note - Encounter Date of Encounter: 09/10/18 Time of Encounter: 15:00 - Subjective Interval History: 58 year old male with history of hypertension, COPD, morbid obesity who presented to the ED from orthopedic clinic due to shortness of breath. Pt was seeing Dr. Sifuentes today for left fourth and fifth finger infection he noticed that patient was having difficult time breathing and advised the patient to go to the ED for further evaluation. Patient states that he has been having trouble breathing for the last 2 days, associated with cough but without significant sputum production. Denies any chest pain, orthopnea, PND, or wor sening leg swelling - Exam Vitals: Temp Pulse Resp BP Pulse Ox 97.9 F 59 20 148/84 95 09/10/18 12:05 09/10/18 12:05 09/10/18 12:05 09/10/18 12:05 09/10/18 12:05 Exam: GENERAL: Alert, no distress, cooperative EYES: PERRLA, EOMI EARS: External ears normal, canals clear OROPHARYNX: Lips, mucosa, and tongue normal. Teeth and gums normal. Oropharynx normal. NECK: No jugulovenous distention, No carotid bruits, Carotid pulse normal contour, Supple LUNGS: Lungs clear to auscultation, Good diaphragmatic excursion CARDIAC: Normal S1 and S2; no rubs, murmurs, or gallops ABDOMEN: Abdomen soft, non-tender, BS normal, No masses or organomegaly EXTREMITIES: Extremities left hand little finger and ring finger has bandages on it and not removed for patient preference. There is significant erythema that is seen extending beyond the bandages on both these fingers as well as the middle finger with what appears to be scaling wounds as well. - Assessment and Plan (1) COPD exacerbation Current Visit: Yes Status: Acute Assessment and Plan: Continue on BIPAP, nebs, steroids and antibiotics Perform walk study today Seen by PT who recommend SNF. 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 s/p debridement by orthopedic surgery. Stable. continue on vanc and zosyn (3) HTN (hypertension) Current Visit: Yes Status: Chronic Assessment and Plan: Stable. Continue to monitor (4) Morbid obesity with BMI of 50.0-59.9, adult Current Visit: Yes Status: Chronic Assessment and Plan: Dietary education provided regarding obesity (5) Mass of left lung Current Visit: Yes Status: Chronic Assessment and Plan: This will be deferred to outpatient. Apparently he has already had a biopsy and was told it was negative. To follow up with pulmonary as an outpatient upon discharge (6) DVT prophylaxis Current Visit: Yes Status: Acute Assessment and Plan: SQ heparin - Time Spent with Patient Total time spent is greater than 50% in coordination of care (as documented) at patient's floor/unit and/or counseling patient: Internal Medicine: Result - Labs CBC & Chem 7: 09/10/18 03:00 09/10/18 03:00 Labs: Short CBC 09/10/18 Range/Units 03:00 WBC 6.6 (4.3-11.1) K/mcL Hgb 13.3 (12.9-16.9) g/dL Hct 40.8 (37.5-50.1) % Plt Count 161 (140-400) K/mcL Neutrophils # 5.6 (1.6-8.9) K/mcL BMP 09/10/18 03:00 Sodium 139 Potassium 4.3 Chloride 108 H Carbon Dioxide 31 H BUN 36 H Creatinine 0.83 Glucose 144 H Calcium 9.0 - ABG Interpretation ABG results: ABG ABG pH 7.40 pH Units (7.32-7.45) 09/09/18 16:32 ABG pCO2 50 mmHg (35-45) H 09/09/18 16:32 ABG pO2 91 mmHg (85-104) 09/09/18 16:32 ABG O2 Saturation 97 % (95-98) 09/09/18 16:32 PT/INR, D-dimer PT 12.6 Seconds (9.4-12.1) H 09/07/18 04:30 Consult Discharge Plan - Plan Referrals: Agatha Upton, B[employer] GL[employer]ER [Primary Care Provider] - (3) HTN (hypertension) Qualifiers: Hypertension type: essential hypertension Qualified Code(s): I10 - Essential (primary) hypertension
[2018-09-10] MEDS: Cefdinir 300 MG CAPSULE PO SCH (21:16)
[2018-09-10] MEDS: Doxycycline 100 MG CAPSULE PO SCH (21:16)
[2018-09-11] MEDS: traMADol 50 MG TABLET PO PRN (00:24)
[2018-09-11] MEDS: Ipratropium/Albuterol Neb 3 ML IH SCH ×5 (04:46→20:32)
[2018-09-11] MEDS: *HR* Heparin 5,000 UNIT/ML VIAL SQ SCH ×2 (05:21→17:07)
[2018-09-11] MEDS: Budesonide/Formoterol 160/4.5 1 PUFF INH IH SCH ×2 (07:14→20:32)
--- NOTE | 2018-09-11 08:20 | Discharge Summary ---
Orders not resulted at time of discharge: Pending orders 09/06/18 14:36 Culture,Blood [BC] Stat 09/07/18 12:42 Culture,Anaerobic [RM] Routine Date of Encounter: 09/11/18 Time of Encounter: 08:30 - Discharge Diagnosis (1) COPD exacerbation Priority: Primary Status: Acute Assessment and Plan: 8 year old male with history of hypertension, COPD, morbid obesity who presented to the ED from orthopedic clinic due to shortness of breath. Pt was seeing Dr. Sifuentes today for left fourth and fifth finger infection he noticed that patient was having difficult time breathing and advised the patient to go to the ED for further evaluation. Patient states that he has been having trouble breathing for the last 2 days, associated with cough but without significant sputum production. Denies any chest pain, orthopnea, PND, or worsening leg swelling. No flulike symptoms or sick contacts. He was also on oral Augmentin for his left finger infection that is not resolving and he is being planned for possible washout during the admission. He was assessed with acute COPD and acute finger infection of the left hand. He was started on vanc and zosyn, seen by orthopedic surgery and had a finger karin ridement done. He tolerated procedure well with no acute complications. For his [employer]F, he was started on BIPAP, nebs, steroids and antibiotics. He has improved and is stable for discharge. He qualified for home oxygen prior to discharge. He is awaiting placment in rehab. 35 minutes was spent discharging this patient (2) Finger infection Priority: Primary Status: Acute (3) HTN (hypertension) Priority: Primary Status: Chronic Qualifiers: Hypertension type: essential hypertension Qualified Code(s): I10 - Essential (primary) hypertension (4) Morbid obesity with BMI of 50.0-59.9, adult Priority: Primary Status: Chronic (5) Mass of left lung Priority: Primary Status: Chronic (6) DVT prophylaxis Priority: Primary Status: Acute Hospital course: Mr. Delgado is a 58 year old male - Time Spent with Patient Total time spent providing and/or coordinating discharge services: - Discharge Medications Prescriptions: New Cefdinir [Omnicef] 300 mg PO BID 7 Days #14 capsule Doxycycline 100 mg PO BID 7 Days #14 capsule predniSONE [PredniSONE] 40 mg PO DAILY 7 Days #14 tablet Continue Ipratropium [ATROVENT Inhaler] 2 puff IH TID PRN PRN Reason: Shortness Of Breath Fluticasone/Vilanterol [Breo Ellipta 200-25 Mcg INH] 1 puff IH DAILY Albuterol Sulfate [Ventolin Hfa] 2 puff IH Q6H PRN PRN Reason: Shortness Of Breath Fluticasone Propionate Nasal [Flonase] 2 spr NS DAILY PRN PRN Reason: Congestion Cetirizine HCl [24Hour Allergy] 10 mg PO DAILY Metoprolol [Lopressor] 25 mg PO BID hydroCHLOROthiazide [Hydrochlorothiazide] 25 mg PO DAILY Lisinopril [Zestril] 20 mg PO DAILY Discontinued Amoxicillin/Clavulanate [Augmentin] 875 mg PO BID Home Medications: Lisinopril [Zestril] 20 mg PO DAILY 07/25/16 [History] Metoprolol [Lopressor] 25 mg PO BID 07/25/16 [History] hydroCHLOROthiazide [Hydrochlorothiazide] 25 mg PO DAILY 07/25/16 [History] Albuterol Sulfate [Ventolin Hfa] 2 puff IH Q6H PRN 09/10/18 [History] Cetirizine HCl [24Hour Allergy] 10 mg PO DAILY 09/10/18 [History] Fluticasone Propionate Nasal [Flonase] 2 spr NS DAILY PRN 09/10/18 [History] Fluticasone/Vilanterol [Breo Ellipta 200-25 Mcg INH] 1 puff IH DAILY 09/10/18 [History] Ipratropium [ATROVENT Inhaler] 2 puff IH TID PRN 09/10/18 [History] Cefdinir [Omnicef] 300 mg PO BID 7 Days #14 capsule 09/11/18 [Rx] Doxycycline 100 mg PO BID 7 Days #14 capsule 09/11/18 [Rx] predniSONE [PredniSONE] 40 mg PO DAILY 7 Days #14 tablet 09/11/18 [Rx] Allergies/Adverse Reactions: Allergy/AdvReac Type Severity Reaction Status Date / Time No Known Allergies Allergy Verified 09/10/18 11:01 Date of admission: 09/07/18 12:24 Primary care physician: Agatha Upton CNP Consults: 09/06/18 14:21 Consult to Orthopedic Surgery [CONS] Stat Consulting Provider: Carlos Sifuentes Reason for Consult: left finger infection Call Completed: Yes 09/06/18 14:29 Consult to Invasive Line Access Team [CONS] Routine Reason for Consult: limited vascular access Line Type: EPIV 09/07/18 08:32 Consult to Nurse Navigator [CONS] Routine Comment: copd 09/09/18 12:18 Consult to Physical Therapy [CONS] Routine Comment: Evaluate, develop and implement POC Reason for Consult: WEAKNESS Does patient have active BEDREST order?: No Is patient medically & hemodynamically stable?: Yes Patient assessed for mobility or mobilized this visit?: No 09/10/18 14:16 Consult to Occupational Therapy [CONS] Routine Comment: Evaluate, develop and implement POC Reason for Consult: deconditioning Does patient have active BEDREST order?: No Is patient medically & hemodynamically stable?: Yes Patient assessed for mobility or mobilized this visit?: No 09/10/18 15:53 Consult to Glass Sagger [CONS] Routine Reason for SW Consult: PT/OT recommending Swing Bed. [facility] - Constitutional Vitals: Temp Pulse Resp BP Pulse Ox 97.5 F L 68 12 158/100 97 09/11/18 05:24 09/11/18 05:24 09/11/18 05:24 09/11/18 05:24 09/11/18 05:24 Exam: GENERAL: Alert, no distress, cooperative EYES: PERRLA, EOMI EARS: External ears normal, canals clear OROPHARYNX: Lips, mucosa, and tongue normal. Teeth and gums normal. Oropharynx normal. NECK: No jugulovenous distention, No carotid bruits, Carotid pulse normal cont our, Supple LUNGS: Lungs clear to auscultation, Good diaphragmatic excursion CARDIAC: Normal S1 and S2; no rubs, murmurs, or gallops ABDOMEN: Abdomen soft, non-tender, BS normal, No masses or organomegaly EXTREMITIES: Extremities left hand little finger and ring finger has bandages on it and not removed for patient preference. There is significant erythema that is seen extending beyond the bandages on both these fingers as well as the middle finger with what appears to be scaling wounds as well. - Patient Status Disposition: Transfer SNF Condition: Good - Discharge Instructions Follow Up With: Agatha Upton HOOK LOADER [Primary Care Provider] -
[2018-09-11] MEDS: Doxycycline 100 MG CAPSULE PO SCH ×2 (08:25→21:28)
[2018-09-11] MEDS: Lisinopril 20 MG TABLET PO SCH (08:26)
[2018-09-11] MEDS: predniSONE 20 MG TABLET PO SCH (08:26)
[2018-09-11] MEDS: Cefdinir 300 MG CAPSULE PO SCH ×2 (08:27→21:28)
[2018-09-11] MEDS ORDERED: Azithromycin 250 MG TABLET PO SCH (09:00)
[2018-09-11] MEDS: *HR* LORazepam 2 MG/ML VIAL IVP PRN (10:20)
--- NOTE | 2018-09-11 18:16 | Physician Discharge Referral ---
- Diagnosis (1) COPD exacerbation Priority: Primary Status: Acute (2) Finger infection Priority: Primary Status: Acute (3) HTN (hypertension) Priority: Primary Status: Chronic (4) Morbid obesity with BMI of 50.0-59.9, adult Priority: Primary Status: Chronic (5) Mass of left lung Priority: Primary Status: Chronic (6) DVT prophylaxis Priority: Primary Status: Acute - Transfer Medications Prescriptions: Cefdinir [Omnicef] 300 mg PO BID 7 Days #14 capsule Doxycycline 100 mg PO BID 7 Days #14 capsule predniSONE [PredniSONE] 40 mg PO DAILY 7 Days #14 tablet Home Medications: Lisinopril [Zestril] 20 mg PO DAILY 07/25/16 [History] Metoprolol [Lopressor] 25 mg PO BID 07/25/16 [History] hydroCHLOROthiazide [Hydrochlorothiazide] 25 mg PO DAILY 07/25/16 [History] Albuterol Sulfate [Ventolin Hfa] 2 puff IH Q6H PRN 09/10/18 [History] Cetirizine HCl [24Hour Allergy] 10 mg PO DAILY 09/10/18 [History] Fluticasone Propionate Nasal [Flonase] 2 spr NS DAILY PRN 09/10/18 [History] Fluticasone/Vilanterol [Breo Ellipta 200-25 Mcg INH] 1 puff IH DAILY 09/10/18 [History] Ipratropium [ATROVENT Inhaler] 2 puff IH TID PRN 09/10/18 [History] Cefdinir [Omnicef] 300 mg PO BID 7 Days #14 capsule 09/11/18 [Rx] Doxycycline 100 mg PO BID 7 Days #14 capsule 09/11/18 [Rx] predniSONE [PredniSONE] 40 mg PO DAILY 7 Days #14 tablet 09/11/18 [Rx] Allergies/Adverse Reactions: Allergy/AdvReac Type Severity Reaction Status Date / Time No Known Allergies Allergy Verified 09/10/18 11:01 - Respiratory Orders Smoking Cessation: Smoking cessation has been advised. For more information, call the [place] Tobacco Quit Line at 4-860-HRZS-NOW. - Mobility Orders Ambulate CERTIFICATION: I certify that the transfer of the above named patient to an Extended Care Facility is necessary for the continuing treatment of the diagnosis listed. The above information is true and accurate reflection of patient's current condition. Confidential - Redisclosure prohibited without a patient's written consent.
[2018-09-12] MEDS: Ipratropium/Albuterol Neb 3 ML IH SCH ×7 (00:39→23:48)
[2018-09-12] MEDS: *HR* Heparin 5,000 UNIT/ML VIAL SQ SCH ×2 (06:07→18:43)
[2018-09-12] MEDS: Doxycycline 100 MG CAPSULE PO SCH ×2 (08:45→21:30)
[2018-09-12] MEDS: Lisinopril 20 MG TABLET PO SCH (08:46)
[2018-09-12] MEDS: Cefdinir 300 MG CAPSULE PO SCH ×2 (08:46→21:32)
[2018-09-12] MEDS: predniSONE 20 MG TABLET PO SCH (08:46)
[2018-09-12] MEDS: Budesonide/Formoterol 160/4.5 1 PUFF INH IH SCH ×2 (11:36→20:30)
--- NOTE | 2018-09-12 20:30 | Internal Med Progress Note ---
Hospitalist Progress Note - Encounter Date of Encounter: 09/12/18 Time of Encounter: 20:27 - Subjective Interval History: Pt states breathing improving. States he sometimes gets chest discomfort when he takes a deep breath. Denies abdominal pain. He denies fever, chills, N/V, diarrhea. - Exam Vitals: Temp Pulse Resp BP Pulse Ox 98.2 F 71 22 160/89 97 09/12/18 20:20 09/12/18 20:20 09/12/18 20:20 09/12/18 20:20 09/12/18 20:20 Exam: GENERAL: Alert, no distress, cooperative, obese EYES: PERRLA, EOMI EARS: External ears normal, canals clear OROPHARYNX: Lips, mucosa, and tongue normal. Teeth and gums normal. Oropharynx normal. NECK: No jugulovenous distention, No carotid bruits, Carotid pulse normal contour, Supple LUNGS: Decreased breath sounds bilaterally. Lungs clear to auscultation, Good diaphragmatic excursion CARDIAC: Normal S1 and S2; no rubs, murmurs, or gallops ABDOMEN: Abdomen soft, non-tender, BS normal, No masses or organomegaly EXTREMITIES: Extremities left hand little finger and ring finger has bandages on it and not removed for patient preference. There is significant erythema that is seen extending beyond the bandages on both these fingers as well as the middle finger with what appears to be scaling wounds as well. - Assessment and Plan (1) COPD exacerbation Current Visit: Yes Status: Acute Assessment and Plan: Patient states that he has been having trouble breathing for the last past few days, associated with cough but without significant sputum production. Denies any chest pain, orthopnea, PND, or worsening leg swelling. No flulike symptoms or sick contacts. He was also on oral Augmentin for his left finger infection that was not resolving. He was assessed with acute COPD and acute finger infection of the left hand. He was started on Vancomycin and zosyn, seen by orthopedic surgery and had a fi nger debridement done. He tolerated procedure well with no acute complications. For his COPD, he was started on BIPAP, nebs, steroids and antibiotics. He has improved qualified for home oxygen prior to discharge. He is awaiting placement in rehab. 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 s/p debridement by orthopedic surgery. Was on Vancomycin and zosyn now PO omnicef and doxycycline (3) HTN (hypertension) Current Visit: Yes Status: Chronic Assessment and Plan: Stable. Continue to monitor (4) Morbid obesity with BMI of 50.0-59.9, adult Current Visit: Yes Status: Chronic Assessment and Plan: Dietary education provided regarding obesity (5) Mass of left lung Current Visit: Yes Status: Chronic Assessment and Plan: This will be deferred to outpatient. Apparently he has already had a biopsy and was told it was negative. He is to follow up with pulmonary as an outpatient upon discharge DVT Prophylaxis: Heparin - Summary of Assessment and Plan Summary of Assessment and Plan: Interval History: Dr. Leal 58 year old male with history of hypertension, COPD, morbid obesity who presented to the ED from orthopedic clinic due to shortness of breath. Pt was seeing Dr. Sifuentes today for left fourth and fifth finger infection he noticed that patient was having difficult time breathing and advised the patient to go to the ED for further evaluation. Patient states that he has been having trouble breathing for the last 2 days, associated with cough but without significant sputum production. Denies any chest pain, orthopnea, PND, or worsening leg swelling. 8 year old male with history of hypertension, COPD, morbid obesity who presented to the ED from orthopedic clinic due to shortness of breath. Pt was seeing Dr. Sifuentes today for left fourth and fifth finger infection he noticed that patient was having difficult time breathing and advised the patient to go to the ED for further evaluation. - Time Spent with Patient Total time spent is greater than 50% in coordination of care (as documented) at patient's floor/unit and/or counseling patient: less than 15 minutes Plan of Care Discussed with: patient Internal Medicine: Result - Labs CBC & Chem 7: 09/10/18 03:00 09/10/18 03:00 - ABG Interpretation ABG results: ABG ABG pH 7.40 pH Units (7.32-7.45) 09/09/18 16:32 ABG pCO2 50 mmHg (35-45) H 09/09/18 16:32 ABG pO2 91 mmHg (85-104) 09/09/18 16:32 ABG O2 Saturation 97 % (95-98) 09/09/18 16:32 PT/INR, D-dimer PT 12.6 Seconds (9.4-12.1) H 09/07/18 04:30 Consult Discharge Plan - Plan Referrals: Agatha Upton CNP [Primary Care Provider] - Prescriptions: Cefdinir [Omnicef] 300 mg PO BID 7 Days #14 capsule Doxycycline 100 mg PO BID 7 Days #14 capsule predniSONE [PredniSONE] 40 mg PO DAILY 7 Days #14 tablet ____ (3) HTN (hypertension) Qualifiers: Hypertension type: essential hypertension Qualified Code(s): I10 - Essential (primary) hypertension
--- NOTE | 2018-09-12 21:42 | Orthopedics Progress Note ---
Date of Encounter: 09/12/18 Time of Encounter: 15:30 Subjective Interval history: S: No significant pain to the left ring and small fingersl O: Afebrile on the vital signs are stable Left small finger and ring finger wounds healing very nicely without any redness or purulence. Erythema is resolved. The patient can actively flex and extend all digits, extend the thumb, cross the index and long fingers, make an okay sign, and oppose the thumb. The fingertips are all grossly sensate and well-perfused, and the radial artery pulse is 2+. 2x2 and coban placed on the small finger. A band-aid placed on the ring finger. A: Post I&D of the left ring and small fingers. P: Continue oral ABX Orthopedically stable for discharge. Daily dressing changes at home explained to the patient. F/U 1 week for a wound eval and stitch removal. Objective Vital signs: Vital Signs Temp Pulse Resp BP Pulse Ox 09/12/18 20:31 20 97 09/12/18 20:20 98.2 F 71 22 160/89 97 09/12/18 16:51 98.1 F 72 20 152/76 98 09/12/18 15:16 14 95 09/12/18 13:53 98.5 F 86 14 151/83 95 09/12/18 13:16 94 09/12/18 11:36 16 97 09/12/18 10:27 98.6 F 75 13 147/89 90 09/12/18 07:35 16 98 09/12/18 06:59 97.7 F 73 14 152/85 96 09/12/18 03:48 22 97 09/12/18 03:11 98.1 F 69 15 171/98 97 09/12/18 00:39 19 98 Intake and Output 09/12/18 09/12/18 09/12/18 07:59 15:59 23:59 Intake Total 240 / 240 720 / 720 Output Total 300 / 300 350 / 350 300 / 300 Balance -60 / -60 370 / 370 -300 / -300 Intake: Oral 240 / 240 720 / 720 Output: Urine 300 / 300 350 / 350 300 / 300 Other: Meal Lunch Percent of Meal Consumed 50% 100% Stool Size Large Stool Consistency soft Stool Characteristics Normal for Patient Stool Color Brown Weight 153.5 kg Patient Weight 09/12/18 23:59 Weight 153.5 kg - Labs CBC & BMP: 09/10/18 03:00 09/10/18 03:00 Labs: Abnormal lab results Lymphocytes # 0.5 K/mcL (0.6-4.6) L 09/10/18 03:00 ESR 24 mm/hr (0-10) H 09/06/18 12:48 PT 12.6 Seconds (9.4-12.1) H 09/07/18 04:30 ABG pCO2 50 mmHg (35-45) H 09/09/18 16:32 ABG HCO3 31 mEq/L (21-27) H 09/09/18 16:32 ABG Total CO2 33 mEq/L (20-26) H 09/09/18 16:32 ABG Base Excess 5 mEq/L (-2 to 3) H 09/09/18 16:32 Chloride 108 mEq/L (98-107) H 09/10/18 03:00 Carbon Dioxide 31 mEq/L (23-29) H 09/10/18 03:00 BUN 36 mg/dL (6-20) H 09/10/18 03:00 BUN/Creatinine Ratio 43 (6-26) H 09/10/18 03:00 Glucose 144 mg/dL (70-105) H 09/10/18 03:00 POC Glucose 116 mg/dL (70-99) H 09/07/18 05:24 C-Reactive Protein 14 mg/L (Less than 10) H 09/06/18 12:48 B-Natriuretic Peptide 161 pg/mL (Less than 100) H 09/06/18 12:48 Consult Discharge Plan - Plan Referrals: Agatha Upton CNP [Primary Care Provider] - Prescriptions: Cefdinir [Omnicef] 300 mg PO BID 7 Days #14 capsule Doxycycline 100 mg PO BID 7 Days #14 capsule predniSONE [PredniSONE] 40 mg PO DAILY 7 Days #14 tablet
[2018-09-13] MEDS: Ipratropium/Albuterol Neb 3 ML IH SCH ×5 (03:48→20:41)
[2018-09-13] MEDS: *HR* Heparin 5,000 UNIT/ML VIAL SQ SCH ×2 (06:38→18:37)
[2018-09-13] MEDS: Budesonide/Formoterol 160/4.5 1 PUFF INH IH SCH ×2 (07:27→20:41)
[2018-09-13] MEDS: Lisinopril 20 MG TABLET PO SCH (08:47)
[2018-09-13] MEDS: Doxycycline 100 MG CAPSULE PO SCH ×2 (08:47→21:36)
[2018-09-13] MEDS: predniSONE 20 MG TABLET PO SCH (08:47)
[2018-09-13] MEDS: Cefdinir 300 MG CAPSULE PO SCH ×2 (08:49→21:36)
--- NOTE | 2018-09-13 18:13 | Internal Med Progress Note ---
Hospitalist Progress Note - Encounter Date of Encounter: 09/13/18 Time of Encounter: 18:13 - Subjective Interval History: Pt on BSC. He denies chest pain. + SOB with activity but tolerating oxygen. Denies fever, chills, N/V or diarrhea. - Exam Vitals: Temp Pulse Resp BP Pulse Ox 98.5 F 72 16 162/81 96 09/13/18 14:24 09/13/18 14:24 09/13/18 16:01 09/13/18 14:24 09/13/18 16:01 Exam: GENERAL: Alert, no distress, cooperative, obese EYES: PERRLA, EOMI EARS: External ears normal, canals clear OROPHARYNX: Lips, mucosa, and tongue normal. Teeth and gums normal. Oropharynx normal. NECK: No jugulovenous distention, No carotid bruits, Carotid pulse normal contour, Supple LUNGS: Decreased breath sounds bilaterally. Lungs clear to auscultation, Good diaphragmatic excursion CARDIAC: Normal S1 and S2; no rubs, murmurs, or gallops ABDOMEN: Abdomen soft, non-tender, BS normal, No masses or organomegaly EXTREMITIES: Extremities left hand little finger and ring finger has bandages on it and not removed for patient preference. Erythema that was seen extending beyond the bandages improving. - Assessment and Plan (1) COPD exacerbation Current Visit: Yes Status: Acute Assessment and Plan: Patient states that he has been having trouble breathing for the last past few days, associated with cough but without significant sputum production. Denies any chest pain, orthopnea, PND, or worsening leg swelling. No flulike symptoms or sick contacts. He was also on oral Augmentin for his left finger infection that was not resolving. He was assessed with acute COPD and acute finger infection of the left hand. He was started on Vancomycin and zosyn, seen by orthopedic surgery and had a finger debridement done. He tolerated procedure well with no acute complications. For his COPD, he was started on BIPAP, nebs, steroids, and completed antibiotics . He has improved qualified for home oxygen prior to discharge. He is awaiting placement in rehab. 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 s/p debridement by orthopedic surgery. Was on Vancomycin and zosyn now PO omnicef and doxycycline (3) HTN (hypertension) Current Visit: Yes Status: Chronic Assessment and Plan: Stable. Continue Lisinopril. Continue to monitor (4) Morbid obesity with BMI of 50.0-59.9, adult Current Visit: Yes Status: Chronic Assessment and Plan: Dietary education provided regarding obesity (5) Mass of left lung Current Visit: Yes Status: Chronic Assessment and Plan: Apparently he has already had a biopsy and was told it was negative. He is to follow up with pulmonary as an outpatient upon discharge. DVT Prophylaxis: Heparin - Summary of Assessment and Plan Summary of Assessment and Plan: Interval History: Dr. Leal 58 year old male with history of hypertension, COPD, morbid obesity who presented to the ED from orthopedic clinic due to shortness of breath. Pt was seeing Dr. Sifuentes today for left fourth and fifth finger infection he noticed that patient was having difficult time breathing and advised the patient to go to the ED for further evaluation. Patient states that he has been having trouble breathing for the last 2 days, associated with cough but without significant sputum production. Denies any chest pain, orthopnea, PND, or worsening leg swelling. 8 year old male with history of hypertension, COPD, morbid obesity who presented to the ED from orthopedic clinic due to shortness of breath. Pt was seeing Dr. Sifuentes today for left fourth and fifth finger infection he noticed that patient was having difficult time breathing and advised the patient to go to the ED for further evaluation. - Time Spent with Patient Total time spent is greater than 50% in coordination of care (as documented) at patient's floor/unit and/or counseling patient: less than 15 minutes Plan of Care Discussed with: patient Internal Medicine: Result - Labs CBC & Chem 7: 09/10/18 03:00 09/10/18 03:00 - ABG Interpretation ABG results: ABG ABG pH 7.40 pH Units (7.32-7.45) 09/09/18 16:32 ABG pCO2 50 mmHg (35-45) H 09/09/18 16:32 ABG pO2 91 mmHg (85-104) 09/09/18 16:32 ABG O2 Saturation 97 % (95-98) 09/09/18 16:32 PT/INR, D-dimer PT 12.6 Seconds (9.4-12.1) H 09/07/18 04:30 Consult Discharge Plan - Plan Referrals: Agatha Upton CNP [Primary Care Provider] - Prescriptions: Cefdinir [Omnicef] 300 mg PO BID 7 Days #14 capsule Doxycycline 100 mg PO BID 7 Days #14 capsule predniSONE [PredniSONE] 40 mg PO DAILY 7 Days #14 tablet __ (3) HTN (hypertension) Qualifiers: Hypertension type: essential hypertension Qualified Code(s): I10 - Essential (primary) hypertension
[2018-09-14] MEDS: Ipratropium/Albuterol Neb 3 ML IH SCH ×7 (00:26→23:51)
[2018-09-14] MEDS: *HR* Heparin 5,000 UNIT/ML VIAL SQ SCH ×2 (06:40→17:51)
[2018-09-14] MEDS: Budesonide/Formoterol 160/4.5 1 PUFF INH IH SCH ×2 (07:41→20:23)
[2018-09-14] MEDS: Doxycycline 100 MG CAPSULE PO SCH ×2 (08:29→20:35)
[2018-09-14] MEDS: Lisinopril 20 MG TABLET PO SCH (08:29)
[2018-09-14] MEDS: Cefdinir 300 MG CAPSULE PO SCH ×2 (08:30→20:36)
[2018-09-14] MEDS: predniSONE 20 MG TABLET PO SCH (08:30)
[2018-09-14] MEDS: Furosemide 40 MG TABLET PO SCH (08:34)
--- NOTE | 2018-09-14 17:11 | Internal Med Progress Note ---
Hospitalist Progress Note - Encounter Date of Encounter: 09/14/18 Time of Encounter: 17:06 - Subjective Interval History: Pt states he is feeling better. Pt states breathing improving. States denies chest discomfort today. Denies abdominal pain. He denies fever, chills, N/V, diarrhea - Exam Vitals: Temp Pulse Resp BP Pulse Ox 98.6 F 74 18 124/72 96 09/14/18 14:00 09/14/18 14:00 09/14/18 15:43 09/14/18 14:00 09/14/18 15:43 Exam: GENERAL: Alert, no distress, cooperative, obese EYES: PERRLA, EOMI EARS: External ears normal, canals clear OROPHARYNX: Lips, mucosa, and tongue normal. Teeth and gums normal. Oropharynx normal. NECK: No jugulovenous distention, No carotid bruits, Carotid pulse normal contour, Supple LUNGS: Decreased breath sounds bilaterally. Lungs clear to auscultation, Good diaphragmatic excursion CARDIAC: Normal S1 and S2; no rubs, murmurs, or gallops ABDOMEN: Abdomen soft, non-tender, BS normal, No masses or organomegaly EXTREMITIES: Extremities left hand little finger and ring finger has bandages on it and not removed for patient preference. Erythema that was seen extending beyond the bandages improving. B/L LE 4+ edema - Assessment and Plan (1) COPD exacerbation Current Visit: Yes Status: Acute Assessment and Plan: Patient states that he has been having trouble breathing for the last past few days, associated with cough but without significant sputum production. Denies any chest pain, orthopnea, PND, or worsening leg swelling. No flulike symptoms or sick contacts. He was also on oral Augmentin for his left finger infection that was not resolving. He was assessed with acute COPD and acute finger infection of the left hand. He was started on Vancomycin and zosyn, seen by orthopedic surgery and had a finger debridement done. He tolerated procedure well with no acute complications. For his COPD, he was started on BIPAP, nebs, steroids, and completed antibiotics. He has improved qualified for home oxygen prior to discharge. He is awaiting placement in rehab. 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 s/p debridement by orthopedic surgery. Was on Vancomycin and zosyn now PO omnicef and doxycycline (3) HTN (hypertension) Current Visit: Yes Status: Chronic Assessment and Plan: Stable. Continue Lisinopril. Continue to monitor (4) Morbid obesity with BMI of 50.0-59.9, adult Current Visit: Yes Status: Chronic Assessment and Plan: Dietary education provided regarding obesity (5) Mass of left lung Current Visit: Yes Status: Chronic Assessment and Plan: Apparently he has already had a biopsy and was told it was negative. He is to follow up with pulmonary as an outpatient upon discharge. (6) Edema Current Visit: Yes Status: Acute Assessment and Plan: Given Laisx 40 mg PO daily and will reasses DVT Prophylaxis: Heparin - Summary of Assessment and Plan Summary of Assessment and Plan: Interval History: Dr. Leal 58 year old male with history of hypertension, COPD, morbid obesity who presented to the ED from orthopedic clinic due to shortness of breath. Pt was seeing Dr. Sifuentes today for left fourth and fifth finger infection he noticed that patient was having difficult time breathing and advised the patient to go to the ED for further evaluation. Patient states that he has been having trouble breathing for the last 2 days, associated with cough but without significant sputum production. Denies any chest pain, orthopnea, PND, or worsening leg swelling. 8 year old male with history of hypertension, COPD, morbid obesity who presented to the ED from orthopedic clinic due to shortness of breath. Pt was seeing Dr. Sifuentes today for left fourth and fifth finger infection he noticed that patient was having difficult time breathing and advised the patient to go to the ED for further evaluation. - Time Spent with Patient Total time spent is greater than 50% in coordination of care (as documented) at patient's floor/unit and/or counseling patient: less than 15 minutes Plan of Care Discussed with: patient Internal Medicine: Result - Labs CBC & Chem 7: 09/10/18 03:00 09/10/18 03:00 - ABG Interpretation ABG results: ABG ABG pH 7.40 pH Units (7.32-7.45) 09/09/18 16:32 ABG pCO2 50 mmHg (35-45) H 09/09/18 16:32 ABG pO2 91 mmHg (85-104) 09/09/18 16:32 ABG O2 Saturation 97 % (95-98) 09/09/18 16:32 PT/INR, D-dimer PT 12.6 Seconds (9.4-12.1) H 09/07/18 04:30 - Impressions Impressions Chest X-Ray 09/14/18 08:07 IMPRESSION: Stable 2.5 cm irregular nodule in the left upper lobe. Otherwise no new acute cardiopulmonary findings. D/ / Destinee Hatch MD / Destinee Hatch MD Interpreting Provider: Destinee Hatch MD Consult Discharge Plan - Plan Referrals: Agatha Upton CNP [Primary Care Provider] - Prescriptions: Cefdinir [Omnicef] 300 mg PO BID 7 Days #14 capsule Doxycycline 100 mg PO BID 7 Days #14 capsule predniSONE [PredniSONE] 40 mg PO DAILY 7 Days #14 tablet (3) HTN (hypertension) Qualifiers: Hypertension type: essential hypertension Qualified Code(s): I10 - Essential (primary) hypertension
[2018-09-15] MEDS: Ipratropium/Albuterol Neb 3 ML IH SCH ×5 (04:11→20:13)
[2018-09-15] MEDS: *HR* Heparin 5,000 UNIT/ML VIAL SQ SCH ×2 (04:32→18:06)
[2018-09-15] MEDS: Budesonide/Formoterol 160/4.5 1 PUFF INH IH SCH ×2 (07:30→20:12)
[2018-09-15] MEDS: Lisinopril 20 MG TABLET PO SCH (09:45)
[2018-09-15] MEDS: Furosemide 40 MG TABLET PO SCH (09:45)
[2018-09-15] MEDS: predniSONE 20 MG TABLET PO SCH (09:45)
[2018-09-15] MEDS: Doxycycline 100 MG CAPSULE PO SCH ×2 (09:45→19:57)
[2018-09-15] MEDS: Cefdinir 300 MG CAPSULE PO SCH ×2 (09:46→19:57)
--- NOTE | 2018-09-15 14:16 | Internal Med Progress Note ---
Hospitalist Progress Note - Encounter Date of Encounter: 09/15/18 Time of Encounter: 14:13 - Subjective Interval History: Pt states his breathing improved today. He denies chest pain. He denies fever, chills, N/V or diarrhea. - Exam Vitals: Temp Pulse Resp BP Pulse Ox 98.1 F 63 20 127/73 96 09/15/18 03:53 09/15/18 03:53 09/15/18 11:08 09/15/18 03:53 09/15/18 11:08 Exam: GENERAL: Alert, no distress, cooperative, obese EYES: PERRLA, EOMI EARS: External ears normal, canals clear OROPHARYNX: Lips, mucosa, and tongue normal. Teeth and gums normal. Oropharynx n ormal. NECK: No jugulovenous distention, No carotid bruits, Carotid pulse normal contour, Supple LUNGS: Decreased breath sounds bilaterally. Lungs clear to auscultation, Good diaphragmatic excursion CARDIAC: Normal S1 and S2; no rubs, murmurs, or gallops ABDOMEN: Abdomen soft, non-tender, BS normal, No masses or organomegaly EXTREMITIES: Extremities left hand little finger and ring finger has bandages on it and not removed for patient preference. Erythema that was seen extending beyond the bandages improving. B/L LE 4+ edema - Assessment and Plan (1) COPD exacerbation Current Visit: Yes Status: Acute Assessment and Plan: Patient states that he has been having trouble breathing for the last past few days, associated with cough but without significant sputum production. Denies any chest pain, orthopnea, PND, or worsening leg swelling. No flulike symptoms or sick contacts. He was also on oral Augmentin for his left finger infection that was not resolving. He was assessed with acute COPD and acute finger infection of the left hand. He was started on Vancomycin and zosyn, seen by orthopedic surgery and had a finger debridement done. He tolerated procedure well with no acute complications. For his COPD, he was started on BIPAP, nebs, steroids, and completed antib iotics. He has improved qualified for home oxygen prior to discharge. He is awaiting placement in rehab. 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 s/p debridement by orthopedic surgery. Was on Vancomycin and zosyn but now PO omnicef and doxycycline (3) HTN (hypertension) Current Visit: Yes Status: Chronic Assessment and Plan: Stable. Continue Lisinopril. Continue to monitor (4) Morbid obesity with BMI of 50.0-59.9, adult Current Visit: Yes Status: Chronic Assessment and Plan: Dietary education provided regarding obesity (5) Mass of left lung Current Visit: Yes Status: Chronic Assessment and Plan: Apparently he has already had a biopsy and was told it was negative. He is to follow up with pulmonary as an outpatient upon discharge. (6) Edema Current Visit: Yes Status: Acute Assessment and Plan: Given Laisx 40 mg PO daily. BMP bumped from 32 to 36 therefore will hold lasix for now. DVT Prophylaxis: Heparin - Summary of Assessment and Plan Summary of Assessment and Plan: Interval History: Dr. Leal 58 year old male with history of hypertension, COPD, morbid obesity who presented to the ED from orthopedic clinic due to shortness of breath. Pt was seeing Dr. Sifuentes today for left fourth and fifth finger infection he noticed that patient was having difficult time breathing and advised the patient to go to the ED for further evaluation. Patient states that he has been having trouble breathing for the last 2 days, associated with cough but without significant sputum production. Denies any chest pain, orthopnea, PND, or worsening leg swelling. 8 year old male with history of hypertension, COPD, morbid obesity who presented to the ED from orthopedic clinic due to shortness of breath. Pt was seeing Dr. Sifuentes today for left fourth and fifth finger infection he noticed that patient was having difficult time breathing and advised the patient to go to the ED for further evaluation. - Time Spent with Patient Total time spent is greater than 50% in coordination of care (as documented) at patient's floor/unit and/or counseling patient: less than 15 minutes Plan of Care Discussed with: patient Internal Medicine: Result - Labs CBC & Chem 7: 09/10/18 03:00 09/10/18 03:00 - ABG Interpretation ABG results: ABG ABG pH 7.40 pH Units (7.32-7.45) 09/09/18 16:32 ABG pCO2 50 mmHg (35-45) H 09/09/18 16:32 ABG pO2 91 mmHg (85-104) 09/09/18 16:32 ABG O2 Saturation 97 % (95-98) 09/09/18 16:32 PT/INR, D-dimer PT 12.6 Seconds (9.4-12.1) H 09/07/18 04:30 Consult Discharge Plan - Plan Referrals: Agatha Upton CNP [Primary Care Provider] - Prescriptions: Cefdinir [Omnicef] 300 mg PO BID 7 Days #14 capsule Doxycycline 100 mg PO BID 7 Days #14 capsule predniSONE [PredniSONE] 40 mg PO DAILY 7 Days #14 tablet (3) HTN (hypertension) Qualifiers: Hypertension type: essential hypertension Qualified Code(s): I10 - Essential (primary) hypertension
[2018-09-16] MEDS: Ipratropium/Albuterol Neb 3 ML IH SCH ×6 (00:28→20:16)
[2018-09-16] MEDS: *HR* Heparin 5,000 UNIT/ML VIAL SQ SCH ×2 (05:04→17:39)
[2018-09-16 05:08] LABS: BUN/Creatinine Ratio 30 (6-26); Blood Urea Nitrogen 21 mg/dL (6-20); Calcium 8.6 mg/dL (8.6-10.3); Carbon Dioxide 29 mEq/L (23-29); Chloride 102 mEq/L (98-107); Glucose 91 mg/dL (70-105); Osmolality,Calculated 289 (280-300); Potassium 3.5 mEq/L (3.5-5.1); Sodium 138 mEq/L (136-145); eGFR For Non-African Americans > 60 (> 60)
[2018-09-16] MEDS: Budesonide/Formoterol 160/4.5 1 PUFF INH IH SCH ×2 (07:50→20:16)
[2018-09-16] MEDS: predniSONE 20 MG TABLET PO SCH (08:20)
[2018-09-16] MEDS: Doxycycline 100 MG CAPSULE PO SCH ×2 (08:20→20:06)
[2018-09-16] MEDS: Cefdinir 300 MG CAPSULE PO SCH ×2 (08:20→20:06)
[2018-09-16] MEDS: Lisinopril 20 MG TABLET PO SCH (08:20)
--- NOTE | 2018-09-16 17:24 | Internal Med Progress Note ---
Hospitalist Progress Note - Encounter Date of Encounter: 09/16/18 Time of Encounter: 17:22 - Subjective Interval History: Pt states he has been voiding ok. Tolerating nasal canula. He denies chest pain. He denies fever, chills, N/V or diarrhea. - Exam Vitals: Temp Pulse Resp BP Pulse Ox 97.6 F 70 14 129/74 96 09/16/18 15:20 09/16/18 15:20 09/16/18 15:25 09/16/18 15:20 09/16/18 15:25 Exam: GENERAL: Alert, no distress, cooperative, obese EYES: PERRLA, EOMI EARS: External ears normal, canals clear OROPHARYNX: Lips, mucosa, and tongue normal. Teeth and gums normal. Oropharynx normal. NECK: No jugulovenous distention, No carotid bruits, Carotid pulse normal contour, Supple LUNGS: Decreased breath sounds bilaterally. Lungs clear to auscultation, Good diaphragmatic excursion CARDIAC: Normal S1 and S2; no rubs, murmurs, or gallops ABDOMEN: Abdomen soft, non-tender, BS normal, No masses or organomegaly EXTREMITIES: Extremities left hand little finger and ring finger has bandages on it and not removed for patient preference. Erythema that was seen extending beyond the bandages improving. B/L LE 4+ edema - Assessment and Plan (1) COPD exacerbation Current Visit: Yes Status: Acute Assessment and Plan: Patient states that he has been having trouble breathing for the last past few days, associated with cough but without significant sputum production. Denies any chest pain, orthopnea, PND, or worsening leg swelling. No flu-like symptoms or sick contacts. He was also on oral Augmentin for his left finger infection that was not resolv ing. He was assessed with acute COPD and acute finger infection of the left hand. He was started on Vancomycin and zosyn, seen by orthopedic surgery and had a finger debridement done. He tolerated procedure well with no acute complications. For his COPD, he was started on BiPAP, nebs, steroids, and completed antibiotics. He has improved qualified for home oxygen prior to discharge. He is awaiting placement in rehab. 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 s/p debridement by orthopedic surgery. Was on Vancomycin and zosyn but On PO omnicef and doxycycline (3) HTN (hypertension) Current Visit: Yes Status: Chronic Assessment and Plan: Stable. Continue Lisinopril. Continue to monitor (4) Morbid obesity with BMI of 50.0-59.9, adult Current Visit: Yes Status: Chronic Assessment and Plan: Dietary education provided regarding obesity (5) Mass of left lung Current Visit: Yes Status: Chronic Assessment and Plan: Apparently he has already had a biopsy and was told it was negative. He is to follow up with pulmonary as an outpatient upon discharge. (6) Edema Current Visit: Yes Status: Acute Assessment and Plan: Given Lasix 40 mg PO daily. BMP bumped from 32 to 36 therefore will hold lasix for now. DVT Prophylaxis: Heparin - Summary of Assessment and Plan Summary of Assessment and Plan: Interval History: Dr. Leal 58 year old male with history of hypertension, COPD, morbid obesity who presented to the ED from orthopedic clinic due to shortness of breath. Pt was seeing Dr. Sifuentes today for left fourth and fifth finger infection he noticed that patient was having difficult time breathing and advised the patient to go to the ED for further evaluation. Patient states that he has been having troub le breathing for the last 2 days, associated with cough but without significant sputum production. Denies any chest pain, orthopnea, PND, or worsening leg swelling. 8 year old male with history of hypertension, COPD, morbid obesity who presented to the ED from orthopedic clinic due to shortness of breath. Pt was seeing Dr. Sifuentes today for left fourth and fifth finger infection he noticed that patient was having difficult time breathing and advised the patient to go to the ED for further evaluation. - Time Spent with Patient Total time spent is greater than 50% in coordination of care (as documented) at patient's floor/unit and/or counseling patient: less than 15 minutes Plan of Care Discussed with: patient Internal Medicine: Result - Labs CBC & Chem 7: 09/10/18 03:00 09/16/18 04:21 Labs: BMP 09/16/18 04:21 Sodium 138 Potassium 3.5 Chloride 102 Carbon Dioxide 29 BUN 21 H Creatinine 0.70 Glucose 91 Calcium 8.6 - ABG Interpretation ABG results: ABG ABG pH 7.40 pH Units (7.32-7.45) 09/09/18 16:32 ABG pCO2 50 mmHg (35-45) H 09/09/18 16:32 ABG pO2 91 mmHg (85-104) 09/09/18 16:32 ABG O2 Saturation 97 % (95-98) 09/09/18 16:32 PT/INR, D-dimer PT 12.6 Seconds (9.4-12.1) H 09/07/18 04:30 Consult Discharge Plan - Plan Referrals: Agatha Upton CNP [Primary Care Provider] - Prescriptions: Cefdinir [Omnicef] 300 mg PO BID 7 Days #14 capsule Doxycycline 100 mg PO BID 7 Days #14 capsule predniSONE [PredniSONE] 40 mg PO DAILY 7 Days #14 tablet (3) HTN (hypertension) Qualifiers: Hypertension type: essential hypertension Qualified Code(s): I10 - Essential (primary) hypertension
[2018-09-17] MEDS: Ipratropium/Albuterol Neb 3 ML IH SCH ×6 (00:01→20:24)
[2018-09-17] MEDS: *HR* Heparin 5,000 UNIT/ML VIAL SQ SCH ×2 (05:16→18:24)
[2018-09-17 07:08] LABS: BUN/Creatinine Ratio 25 (6-26); Blood Urea Nitrogen 17 mg/dL (6-20); Calcium 8.7 mg/dL (8.6-10.3); Carbon Dioxide 29 mEq/L (23-29); Chloride 103 mEq/L (98-107); Glucose 87 mg/dL (70-105); Osmolality,Calculated 285 (280-300); Potassium 3.6 mEq/L (3.5-5.1); Sodium 137 mEq/L (136-145); eGFR For Non-African Americans > 60 (> 60)
[2018-09-17] MEDS: Budesonide/Formoterol 160/4.5 1 PUFF INH IH SCH ×2 (07:37→20:24)
[2018-09-17] MEDS: Furosemide 40 MG TABLET PO SCH (08:39)
[2018-09-17] MEDS: Cefdinir 300 MG CAPSULE PO SCH ×2 (08:39→19:48)
[2018-09-17] MEDS: Lisinopril 20 MG TABLET PO SCH (08:39)
[2018-09-17] MEDS: Doxycycline 100 MG CAPSULE PO SCH ×2 (08:39→19:48)
[2018-09-17 11:42] LABS: Alanine Aminotransferase 83 Units/L (7-52); Albumin 3.1 g/dL (3.5-5.7); Albumin/Globulin Ratio 1.4 (1.1-2.2); Alkaline Phosphatase 40 Units/L (34-104); Aspartate Amino Transferase 44 Units/L (13-39); Bilirubin,Direct 0.3 mg/dL (0.0-0.2); Bilirubin,Indirect 0.8 mg/dL (0.0-1.2); Bilirubin,Total 1.1 mg/dL (0.3-1.0); Globulin 2.2 g/dL (2.4-3.5); Total Protein 5.3 g/dL (6.4-8.9)
[2018-09-17] MEDS ORDERED: MethylPREDNISolone 40 MG/ML VIAL IVP ONE (19:25)
--- NOTE | 2018-09-17 19:28 | Internal Med Progress Note ---
Hospitalist Progress Note - Encounter Date of Encounter: 09/17/18 Time of Encounter: 19:23 - Subjective Interval History: Pt states he has been voiding ok. Tolerating nasal canula. He denies chest pain. He denies fever, chills, N/V or diarrhea. - Exam Vitals: Temp Pulse Resp BP Pulse Ox 98.2 F 78 18 177/82 94 09/17/18 19:11 09/17/18 19:11 09/17/18 19:11 09/17/18 19:11 09/17/18 19:11 Exam: GENERAL: Alert, no distress, cooperative, obese EYES: PERRLA, EOMI EARS: External ears normal, canals clear OROPHARYNX: Lips, mucosa, and tongue normal. Teeth and gums normal. Oropharynx normal. NECK: No jugulovenous distention, No carotid bruits, Carotid pulse normal c ontour, Supple LUNGS: Decreased breath sounds bilaterally. Lungs clear to auscultation, Good diaphragmatic excursion CARDIAC: Normal S1 and S2; no rubs, murmurs, or gallops ABDOMEN: Abdomen soft, non-tender, BS normal, No masses or organomegaly EXTREMITIES: Extremities left hand little finger and ring finger has bandages on it and not removed for patient preference. Erythema that was seen extending beyond the bandages improving. B/L LE 4+ edema - Assessment and Plan (1) COPD exacerbation Current Visit: Yes Status: Acute Assessment and Plan: Patient states that he has been having trouble breathing for the last past few days, associated with cough but without significant sputum production. Denies any chest pain, orthopnea, PND, or worsening leg swelling. No flu-like symptoms or sick contacts. He was also on oral Augmentin for his left finger infection that was not resolvi ng. He was assessed with acute COPD and acute finger infection of the left hand. He was started on Vancomycin and zosyn, seen by orthopedic surgery and had a finger debridement done. He tolerated procedure well with no acute complications. For his COPD, he was started on BiPAP, nebs, steroids, and completed antibiotics. He has improved qualified for home oxygen prior to discharge. He is awaiting placement in rehab. 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 s/p debridement by orthopedic surgery. Was on Vancomycin and zosyn but On PO omnicef and doxycycline (3) HTN (hypertension) Current Visit: Yes Status: Chronic Assessment and Plan: Stable. Continue Lisinopril. Continue to monitor (4) Morbid obesity with BMI of 50.0-59.9, adult Current Visit: Yes Status: Chronic Assessment and Plan: Dietary education provided regarding obesity (5) Mass of left lung Current Visit: Yes Status: Chronic Assessment and Plan: Apparently he has already had a biopsy and was told it was negative. He is to follow up with pulmonary as an outpatient upon discharge. (6) Edema Current Visit: Yes Status: Acute Assessment and Plan: Given Lasix 40 mg PO daily. BMP bumped from 32 to 36 now down to 17. Will give Lasix dose today. DVT Prophylaxis: Heparin - Summary of Assessment and Plan Summary of Assessment and Plan: Interval History: Dr. Leal 58 year old male with history of hypertension, COPD, morbid obesity who presente d to the ED from orthopedic clinic due to shortness of breath. Pt was seeing Dr. Sifuentes today for left fourth and fifth finger infection he noticed that patient was having difficult time breathing and advised the patient to go to the ED for further evaluation. Patient states that he has been having trouble breathing for the last 2 days, associated with cough but without significant sputum production. Denies any chest pain, orthopnea, PND, or worsening leg swelling. 8 year old male with history of hypertension, COPD, morbid obesity who presented to the ED from orthopedic clinic due to shortness of breath. Pt was seeing Dr. Sifuentes today for left fourth and fifth finger infection he noticed that patient was having difficult time breathing and advised the patient to go to the ED for further evaluation. - Time Spent with Patient Total time spent is greater than 50% in coordination of care (as documented) at patient's floor/unit and/or counseling patient: less than 15 minutes Plan of Care Discussed with: patient Internal Medicine: Result - Labs CBC & Chem 7: 09/10/18 03:00 09/17/18 06:00 Labs: BMP 09/17/18 06:00 Sodium 137 Potassium 3.6 Chloride 103 Carbon Dioxide 29 BUN 17 Creatinine 0.68 L Glucose 87 Calcium 8.7 Liver Function 09/17/18 Range/Units 06:00 Total Bilirubin 1.1 H (0.3-1.0) mg/dL Direct Bilirubin 0.3 H (0.0-0.2) mg/dL AST 44 H (13-39) Units/L ALT 83 H (7-52) Units/L Alkaline Phosphatase 40 (34-104) Units/L Albumin 3.1 L (3.5-5.7) g/dL - ABG Interpretation ABG results: ABG ABG pH 7.40 pH Units (7.32-7.45) 09/09/18 16:32 ABG pCO2 50 mmHg (35-45) H 09/09/18 16:32 ABG pO2 91 mmHg (85-104) 09/09/18 16:32 ABG O2 Saturation 97 % (95-98) 09/09/18 16:32 PT/INR, D-dimer PT 12.6 Seconds (9.4-12.1) H 09/07/18 04:30 Consult Discharge Plan - Plan Referrals: Agatha Upton, [facility] [Primary Care Provider] - Prescriptions: Cefdinir [Omnicef] 300 mg PO BID 7 Days #14 capsule Doxycycline 100 mg PO BID 7 Days #14 capsule predniSONE [PredniSONE] 40 mg PO DAILY 7 Days #14 tablet (3) HTN (hypertension) Qualifiers: Hypertension type: essential hypertension Qualified Code(s): I10 - Essential (primary) hypertension
[2018-09-18] MEDS: Ipratropium/Albuterol Neb 3 ML IH SCH ×7 (00:33→23:49)
[2018-09-18 05:05] LABS: Basophils % 0.2 %; Eosinophils % 0.1 %; Hematocrit 43.3 % (37.5-50.1); Hemoglobin 14.4 g/dL (12.9-16.9); Lymphocytes # 0.7 K/mcL (0.6-4.6); Lymphocytes % 8.4 %; Mean Corpuscular HGB Conc 33.3 g/dL (31.6-35.5); Mean Corpuscular Hemoglobin 30.1 pg (28.0-33.3); Mean Corpuscular Volume 90.6 fL (83.0-100.0); Mean Platelet Volume 11.2 fL (9.4-12.4); Monocytes # 0.2 K/mcL (0.0-1.3); Monocytes % 2.6 %; Neutrophils # 7.5 K/mcL (1.6-8.9); Platelet Count 161 K/mcL (140-400); Red Blood Count 4.78 M/mcL (4.19-5.50); Red Cell Distribution Width 13.2 % (11.5-14.5); Segmented Neutrophils % 87.7 %
[2018-09-18] MEDS: *HR* Heparin 5,000 UNIT/ML VIAL SQ SCH ×2 (05:23→18:24)
[2018-09-18 05:25] LABS: BUN/Creatinine Ratio 24 (6-26); Blood Urea Nitrogen 17 mg/dL (6-20); Calcium 9.2 mg/dL (8.6-10.3); Carbon Dioxide 26 mEq/L (23-29); Chloride 102 mEq/L (98-107); Glucose 132 mg/dL (70-105); Osmolality,Calculated 289 (280-300); Potassium 4.4 mEq/L (3.5-5.1); Sodium 138 mEq/L (136-145); eGFR For Non-African Americans > 60 (> 60)
[2018-09-18] MEDS ORDERED: predniSONE 20 MG TABLET PO SCH (08:00)
[2018-09-18] MEDS: Budesonide/Formoterol 160/4.5 1 PUFF INH IH SCH ×2 (08:21→20:31)
[2018-09-18] MEDS: Cefdinir 300 MG CAPSULE PO SCH (09:25)
[2018-09-18] MEDS: Lisinopril 20 MG TABLET PO SCH (09:25)
[2018-09-18] MEDS: Doxycycline 100 MG CAPSULE PO SCH (09:25)
[2018-09-18] MEDS: Furosemide 40 MG TABLET PO SCH (09:26)
--- NOTE | 2018-09-18 16:21 | Internal Med Progress Note ---
Hospitalist Progress Note - Encounter Date of Encounter: 09/18/18 Time of Encounter: 16:19 - Subjective Interval History: Pt states he has been voiding ok. Tolerating nasal canula. He denies chest pain. He denies fever, chills, N/V or diarrhea. - Exam Vitals: Temp Pulse Resp BP Pulse Ox 98.0 F 82 18 177/73 96 09/18/18 15:02 09/18/18 15:02 09/18/18 16:16 09/18/18 16:16 09/18/18 16:16 Exam: GENERAL: Alert, no distress, cooperative, obese EYES: PERRLA, EOMI EARS: External ears normal, canals clear OROPHARYNX: Lips, mucosa, and tongue normal. Teeth and gums normal. Oropharynx normal. NECK: No jugulovenous distention, No carotid bruits, Carotid pulse normal c ontour, Supple LUNGS: Decreased breath sounds bilaterally. Lungs clear to auscultation, Good diaphragmatic excursion CARDIAC: Normal S1 and S2; no rubs, murmurs, or gallops ABDOMEN: Abdomen soft, non-tender, BS normal, No masses or organomegaly EXTREMITIES: Extremities left hand little finger and ring finger has bandages on it and not removed for patient preference. Erythema that was seen extending beyond the bandages improving. B/L LE 4+ edema - Assessment and Plan (1) COPD exacerbation Current Visit: Yes Status: Acute Assessment and Plan: Patient states that he has been having trouble breathing for the last past few days, associated with cough but without significant sputum production. Denies any chest pain, orthopnea, PND, or worsening leg swelling. No flu-like symptoms or sick contacts. He was also on oral Augmentin for his left finger infection that was not resolvi ng. He was assessed with acute COPD and acute finger infection of the left hand. He was started on Vancomycin and zosyn, seen by orthopedic surgery and had a finger debridement done. He tolerated procedure well with no acute complications. For his COPD, he was started on BiPAP, nebs, steroids, and completed antibiotics. He has improved qualified for home oxygen prior to discharge. He is awaiting placement in rehab. 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 s/p debridement by orthopedic surgery. Was on Vancomycin and zosyn but On PO Omnicef and doxycycline and completed. Will DC antibiotics today. (3) HTN (hypertension) Current Visit: Yes Status: Chronic Assessment and Plan: Stable. Continue Lisinopril. Continue to monitor (4) Morbid obesity with BMI of 50.0-59.9, adult Current Visit: Yes Status: Chronic Assessment and Plan: Dietary education provided regarding obesity (5) Mass of left lung Current Visit: Yes Status: Chronic Assessment and Plan: Apparently he has already had a biopsy and was told it was negative. He is to follow up with pulmonary as an outpatient upon discharge. (6) Edema Current Visit: Yes Status: Acute Assessment and Plan: Given Lasix 40 mg PO daily. BMP bumped from 32 to 36 now down to 17. Will continue Lasix and monitor BMP. Etiology unclear. Echo showing EF 60-65% but unable to determine RVSP due to body habitus. Therefore unable to determine if he has pulmonary HTN. Pt admitted today 09/18/18 that he has history of Hep C which had not been documented on admission. Checking abd US to assess for cirrhosis as this could possibly be contributing to volume overload state. Echo reviewed EV/EV echocardiogram w enhance Impressions: Technically sub-optimal due to body habitus. LVEF 60-65%. Mild concentric left ventricular hypertrophy. Normal left ventricular diastolic function. The right ventricle was not well visualized Unable to estimate RVSP due to lack of TR jet. No obvious significant valvular dysfunction. (7) Hepatitis Current Visit: Yes Status: Acute (8) Hepatitis C Current Visit: Yes Status: Chronic Assessment and Plan: Was not documented in pt's history. Asked pt about history of liver disease due to elevated LFT's and he then informed me he has history of Hep C. Will check abdominal US to assess for liver cirrhosis. (9) Elevated liver enzymes Current Visit: Yes Status: Acute Assessment and Plan: Will check abdominal US to assess for cirrhosis and hepatitis panel. DVT Prophylaxis: Heparin - Summary of Assessment and Plan Summary of Assessment and Plan: Interval History: Dr. Leal 58 year old male with history of hypertension, COPD, morbid obesity who presented to the ED from orthopedic clinic due to shortness of breath. Pt was seeing Dr. Sifuentes today for left fourth and fifth finger infection he noticed that patient was having difficult time breathing and advised the patient to go to the ED for further evaluation. Patient states that he has been having trouble breathing for the last 2 days, associated with cough but without significant sputum production. Denies any chest pain, orthopnea, PND, or worsening leg swelling. 8 year old male with history of hypertension, COPD, morbid obesity who presented to the ED from orthopedic clinic due to shortness of breath. Pt was seeing Dr. Sifuentes today for left fourth and fifth finger infection he noticed that patient was having difficult time breathing and advised the patient to go to the ED for further evaluation. - Time Spent with Patient Total time spent is greater than 50% in coordination of care (as documented) at patient's floor/unit and/or counseling patient: less than 15 minutes Plan of Care Discussed with: patient Internal Medicine: Result - Labs CBC & Chem 7: 09/18/18 04:29 09/18/18 04:29 Labs: Short CBC 09/18/18 Range/Units 04:29 WBC 8.6 (4.3-11.1) K/mcL Hgb 14.4 (12.9-16.9) g/dL Hct 43.3 (37.5-50.1) % Plt Count 161 (140-400) K/mcL Neutrophils # 7.5 (1.6-8.9) K/mcL BMP 09/18/18 04:29 Sodium 138 Potassium 4.4 Chloride 102 Carbon Dioxide 26 BUN 17 Creatinine 0.70 Glucose 132 H Calcium 9.2 - ABG Interpretation ABG results: ABG ABG pH 7.40 pH Units (7.32-7.45) 09/09/18 16:32 ABG pCO2 50 mmHg (35-45) H 09/09/18 16:32 ABG pO2 91 mmHg (85-104) 09/09/18 16:32 ABG O2 Saturation 97 % (95-98) 09/09/18 16:32 PT/INR, D-dimer PT 12.6 Seconds (9.4-12.1) H 09/07/18 04:30 Consult Discharge Plan - Plan Referrals: Agatha Upton, TRAILER [employer]IC [Primary Care Provider] - (3) HTN (hypertension) Qualifiers: Hypertension type: essential hypertension Qualified Code(s): I10 - Essential (primary) hypertension
[2018-09-19] MEDS: Ipratropium/Albuterol Neb 3 ML IH SCH ×4 (03:55→15:17)
[2018-09-19] MEDS: *HR* Heparin 5,000 UNIT/ML VIAL SQ SCH (05:20)
[2018-09-19] MEDS: Budesonide/Formoterol 160/4.5 1 PUFF INH IH SCH (07:20)
[2018-09-19 08:18] LABS: BUN/Creatinine Ratio 25 (6-26); Blood Urea Nitrogen 22 mg/dL (6-20); Calcium 9.1 mg/dL (8.6-10.3); Carbon Dioxide 32 mEq/L (23-29); Chloride 101 mEq/L (98-107); Glucose 100 mg/dL (70-105); Osmolality,Calculated 293 (280-300); Sodium 140 mEq/L (136-145); eGFR For Non-African Americans > 60 (> 60)
[2018-09-19] MEDS: Furosemide 40 MG TABLET PO SCH (09:06)
[2018-09-19] MEDS: Lisinopril 20 MG TABLET PO SCH (09:06)
[2018-09-19 10:28] VITALS: BP 146/77
--- NOTE | 2018-09-19 13:08 | Discharge Summary ---
- NOTES TO OUTPATIENT PROVIDER Notes to Outpatient Provider: PCP in 3 to 5 days at facility. GI follow up out pt Orders not resulted at time of discharge: Pending orders 09/19/18 13:03 Viral hepatitis panel [Hepatitis Prof.(Routine A,B,C)] Routine 09/20/18 04:00 BMP [Basic Metabolic Panel] AM 0400 Date of Encounter: 09/19/18 Time of Encounter: 13:04 - Discharge Diagnosis (1) COPD exacerbation Priority: Primary Status: Acute Assessment and Plan: Patient states that he has been having trouble breathing for the last past few days, associated with cough but without significant sputum production. Denies any chest pain, orthopnea, PND, or worsening leg swelling. No flu-like symptoms or sick contacts. He was also on oral Augmentin for his left finger infection that was not resolving. He was assessed with acute COPD and acute finger infection of the left hand. He was started on Vancomycin and Zosyn, seen by orthopedic surgery and had a finger debridement done. He tolerated procedure well with no acute complications. For his COPD, he was started on BiPAP, nebs, steroids, and completed antibiotics. He has improved qualified for home oxygen prior to discharge. He is awaiting placement in rehab. 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 s/p debridement by orthopedic surgery. Was on Vancomycin and Zosyn but switched to PO Omnicef and doxycycline and completed 09/18/18. (3) HTN (hypertension) Priority: Secondary Status: Chronic Assessment and Plan: Stable. Continue Lisinopril. Continue to monitor Qualifiers: Hypertension type: essential hypertension Qualified Code(s): I10 - Essential (primary) hypertension (4) Morbid obesity with BMI of 50.0-59.9, adult Priority: Secondary Status: Chronic Assessment and Plan: Dietary education provided regarding obesity (5) Mass of left lung Priority: Secondary Status: Chronic Assessment and Plan: Apparently he has already had a biopsy and was told it was negative. He is to follow up with pulmonary as an outpatient upon discharge. (6) Edema Priority: Secondary Status: Acute Assessment and Plan: Given Lasix 40 mg PO daily. BMP bumped from 32 to 36 now down to 17. Given Lasix trial but BUN bumped so hold off scheduled lasix. Rec monitor BMP if putting pt back on lasix out pt. Etiology of edema unclear. Echo showing EF 60-65% but unable to determine RVSP due to body habitus. Therefore unable to determine if he has pulmonary HTN. Pt admitted today 09/18/18 that he has history of Hep C which had not been documented on admission. Abdominal US does not report cirrhosis. Will send liver NAFLD. could possibly be contributing to volume overload state. Echo reviewed EV/EV echocardiogram w enhance Impressions: Technically sub-optimal due to body habitus. LVEF 60-65%. Mild concentric left ventricular hypertrophy. Normal left ventricular diastolic function. The right ventricle was not well visualized Unable to estimate RVSP due to lack of TR jet. No obvious significant valvular dysfunction. Qualifiers: Qualified Code(s): R60.9 - Edema, unspecified (7) Hepatitis C Priority: Secondary Status: Chronic Assessment and Plan: Was not documented in pt's history. Asked pt about history of liver disease due to elevated LFT's and he then informed me he has history of Hep C. Abdominal US showing gall stones but he is asymptomatic. No evidence of liver cirrhosis. Recommend out pt follow up with GI. Qualifiers: Qualified Code(s): B19.20 - Unspecified viral hepatitis C without hepatic coma (8) Elevated liver enzymes Priority: Secondary Status: Acute Assessment and Plan: Abdominal US showing gall stones. Pt asymptomatic denies N/V or RUQ abdominal pain. No documentation of cirrhosis and hepatitis panel pending. Hospital course: History of present illness: Dr. Mercado Mr. Delgdao is a 58 year old male with history of hypertension, COPD, morbid obesity who presented to the ED from orthopedic clinic due to shortness of breath. Pt was seeing Dr. Sifuentes today for left fourth and fifth finger infection he noticed that patient was having difficult time breathing and advised the patient to go to the ED for further evaluation. Patient states that he has been having trouble breathing for the last 2 days, associated with cough but without significant sputum production. Denies any chest pain, orthopnea, PND, or worsening leg swelling. No flulike symptoms or sick contacts. He was also on oral Augmentin for his left finger infection that is not resolving and he is being planned for possible washout during the admission. In the ED, he was afebrile and hemodynamically stable. Labwork showed normal white blood cell count and slightly elevated ESR and CRP. Normal lactic acid. Troponin negative. Chest x-ray was negative for acute cardiopulmonary process. He was given IV Solu-Medrol and bronchodilator as well as vanc/zosyn then admitted for further mx with orthopedic consultation. Discharge discussed with: patient - Time Spent with Patient Total time spent providing and/or coordinating discharge services: Time spent: Greater than 30 minutes - Discharge Medications Prescriptions: Continue Ipratropium [ATROVENT Inhaler] 2 puff IH TID PRN PRN Reason: Shortness Of Breath Fluticasone/Vilanterol [Breo Ellipta 200-25 Mcg INH] 1 puff IH DAILY Albuterol Sulfate [Ventolin Hfa] 2 puff IH Q6H PRN PRN Reason: Shortness Of Breath Fluticasone Propionate Nasal [Flonase] 2 spr NS DAILY PRN PRN Reason: Congestion Cetirizine HCl [24Hour Allergy] 10 mg PO DAILY Metoprolol [Lopressor] 25 mg PO BID hydroCHLOROthiazide [Hydrochlorothiazide] 25 mg PO DAILY Lisinopril [Zestril] 20 mg PO DAILY Discontinued Amoxicillin/Clavulanate [Augmentin] 875 mg PO BID Home Medications: Lisinopril [Zestril] 20 mg PO DAILY 07/25/16 [History] Metoprolol [Lopressor] 25 mg PO BID 07/25/16 [History] hydroCHLOROthiazide [Hydrochlorothiazide] 25 mg PO DAILY 07/25/16 [History] Albuterol Sulfate [Ventolin Hfa] 2 puff IH Q6H PRN 09/10/18 [History] Cetirizine HCl [24Hour Allergy] 10 mg PO DAILY 09/10/18 [History] Fluticasone Propionate Nasal [Flonase] 2 spr NS DAILY PRN 09/10/18 [History] Fluticasone/Vilanterol [Breo Ellipta 200-25 Mcg INH] 1 puff IH DAILY 09/10/18 [History] Ipratropium [ATROVENT Inhaler] 2 puff IH TID PRN 09/10/18 [History] Allergies/Adverse Reactions: Allergy/AdvReac Type Severity Reaction Status Date / Time No Known Allergies Allergy Verified 09/10/18 11:01 Date of admission: 09/07/18 12:24 Primary care physician: Agatha Upton CNP Consults: 09/06/18 14:21 Consult to Orthopedic Surgery [CONS] Stat Consulting Provider: Carlos Sifuentes Reason for Consult: left finger infection Call Completed: Yes 09/06/18 14:29 Consult to Invasive Line Access Team [CONS] Routine Reason for Consult: limited vascular access Line Type: EPIV 09/07/18 08:32 Consult to Nurse Navigator [CONS] Routine Comment: copd 09/09/18 12:18 Consult to Physical Therapy [CONS] Routine Comment: Evaluate, develop and implement POC Reason for Consult: WEAKNESS Does patient have active BEDREST order?: No Is patient medically & hemodynamically stable?: Yes Patient assessed for mobility or mobilized this visit?: No 09/10/18 14:16 Consult to Occupational Therapy [CONS] Routine Comment: Evaluate, develop and implement POC Reason for Consult: deconditioning Does patient have active BEDREST order?: No Is patient medically & hemodynamically stable?: Yes Patient assessed for mobility or mobilized this visit?: No 09/10/18 15:53 Consult to Counselor Camp [CONS] Routine Reason for SW Consult: PT/OT recommending Swing Bed. [facility] Discharging clinician: Carie Casey Anticipated date of discharge: 09/19/18 - Constitutional Vitals: Temp Pulse Resp BP Pulse Ox 97.5 F L 78 18 146/77 98 09/19/18 10:27 09/19/18 10:27 09/19/18 11:19 09/19/18 10:27 09/19/18 11:19 Exam: Exam: GENERAL: Alert, no distress, cooperative, morbidly obese EYES: PERRLA, EOMI EARS: External ears normal, canals clear OROPHARYNX: Lips, mucosa, and tongue normal. Teeth and gums normal. Oropharynx normal. NECK: No jugulovenous distention, No carotid bruits, Carotid pulse normal contour, Supple LUNGS: Decreased breath sounds bilaterally. Lungs clear to auscultation, Good diaphragmatic excursion CARDIAC: Normal S1 and S2; no rubs, murmurs, or gallops ABDOMEN: Abdomen soft, non-tender, BS normal, No masses or organomegaly EXTREMITIES: Extremities left hand little finger and ring finger has bandages on it and not removed for patient preference. Erythema that was seen extending beyond the bandages improving. B/L LE 3+ edema - Patient Status Disposition: Transfer SNF Condition: Good Overall status at discharge: patient is progressing back to baseline - Discharge Instructions Instructions: Chronic Obstructive Pulmonary Disease (DC) Follow Up With: Lucero Lock MD [Partnered Physician] - (Web request, office will call with appointment date and time. Thank you) - Diet and Activity Activity: increase activity as tolerated Diet: advance to your usual diet, low fat, low cholesterol, low salt diet
--- NOTE | 2018-09-19 13:20 | Physician Discharge Referral ---
ExtendedCare Referral Info Provider in Charge after Transfer: PCP Institutional Level of Care: Skilled - Diagnosis (1) COPD exacerbation Priority: Primary Status: Acute (2) Finger infection Priority: Secondary Status: Acute (3) HTN (hypertension) Priority: Secondary Status: Chronic (4) Morbid obesity with BMI of 50.0-59.9, adult Priority: Secondary Status: Chronic (5) Mass of left lung Priority: Secondary Status: Chronic (6) Edema Status: Acute (7) Hepatitis C Status: Chronic (8) Elevated liver enzymes Status: Acute - Transfer Medications Home Medications: Lisinopril [Zestril] 20 mg PO DAILY 07/25/16 [History] Metoprolol [Lopressor] 25 mg PO BID 07/25/16 [History] hydroCHLOROthiazide [Hydrochlorothiazide] 25 mg PO DAILY 07/25/16 [History] Albuterol Sulfate [Ventolin Hfa] 2 puff IH Q6H PRN 09/10/18 [History] Cetirizine HCl [24Hour Allergy] 10 mg PO DAILY 09/10/18 [History] Fluticasone Propionate Nasal [Flonase] 2 spr NS DAILY PRN 09/10/18 [History] Fluticasone/Vilanterol [Breo Ellipta 200-25 Mcg INH] 1 puff IH DAILY 09/10/18 [History] Ipratropium [ATROVENT Inhaler] 2 puff IH TID PRN 09/10/18 [History] Allergies/Adverse Reactions: Allergy/AdvReac Type Severity Reaction Status Date / Time No Known Allergies Allergy Verified 09/10/18 11:01 - Respiratory Orders Oxygen / L per min Smoking Cessation: Smoking cessation has been advised. For more information, call the [place] Tobacco Quit Line at 9-814-EKCG-NOW. - Advance Directives Code Status: Full Code - Rehabiliation Orders Rehab Orders: Evaluation for Physical Therapy, Evaluation for Occupational Therapy - Diet Orders Cardiac CERTIFICATION: I certify that the transfer of the above named patient to an Extended Care Facility is necessary for the continuing treatment of the diagnosis listed. The above information is true and accurate reflection of patient's current condition. Confidential - Redisclosure prohibited without a patient's written consent.
[2018-09-19 16:14] LABS: Hepatitis B Surface Antigen Nonreactive (Nonreactive)
[2018-09-19 16:46] LABS: Hepatitis A Antibody IgM Nonreactive (Nonreactive); Hepatitis B Core IgM Nonreactive (Nonreactive)
[2018-09-19 20:03] LABS: Hepatitis C Virus Antibody Reactive (Nonreactive)
== END 2018-09-19 17:25 | DRG 951 ==
LOC: EMEROOARM 11:51 → 3ANU 11:51 → SUATTDRO 17:44 → 3ANU 18:34
PROVIDERS: ADMIT Internal Medicine; ATTEND Internal Medicine

== ENCOUNTER 2018-12-13 09:30 | Observation (INO) ==
[2018-12-13] MEDS ORDERED: 0.9 % Sodium Chloride 500 ML ONE (09:55)
[2018-12-13] MEDS ORDERED: *HR* Midazolam HCl 2 MG/2 ML VIAL IVP ONE (10:01)
[2018-12-13] MEDS ORDERED: *HR* FentaNYL (PF) 100 MCG/2 ML VIAL IVP ONE (10:01)
--- NOTE | 2018-12-13 10:02 | History & Physical Report ---
Date of Encounter: 12/13/18 Time of Encounter: 10:02 24 Hour HP Update - Instructions Instructions: If the History and Physical is less than 30 days old and was completed prior to A.M. admission and or procedure and has NOT been updated on calendar day of procedure please complete this update prior to performing procedure. - Update Patient reports changes in Medical Condition: No Changes in examination, assessment, or condition: No Changes in Medication: No Preop tests/diagnostics Reviewed: Yes Surgery Remains Indicated: Yes Consent for Planned Operative Procedure(s) Verified: Yes - Pre-Operative Checklist Preoperative Checklist Indicated: Yes Prophylactic Antibiotic Ordered: No Home Medications Include Beta Juwan: Yes Beta Juwan Taken Today (Day of Surgery): Yes Beta Juwan Taken Yesterday (Day Prior to Surgery): Yes Is VTE Prophylaxis Indicated?: NO
--- NOTE | 2018-12-13 10:03 | Pre-Sedation Evaluation ---
Pre-sedation evaluation - Pre-sedation checklist Date of procedure: 12/13/18 Procedure: CT guided lung biopsy H&P (including ROS) documented in medical record: Yes Previous reaction to sedatives/anesthetics: No Dietary Status: NPO after Midnight Airway Assessment: Patient can open mouth completely, TMJ function normal Dentition: No loose teeth or bridges Possible difficult airway: No ASA Classification *see protocol: CLASS II-Mild systemic disease Plan of Care: Pt appropriate candidate for procedure/moderate/conscious sedation, Risks/benefits of procedure/sedation discussed w/ patient/family
--- NOTE | 2018-12-13 10:58 | IR Procedure Note ---
Date of procedure: 12/13/18 Consent Obtained: Verbal consent, Written consent Timeout: Correct patient and procedure verified, Correct site verified, Time out performed, Skin prep completed Was there an client services assistant present: No Results/Findings: CT guided left upper lobe nodule biopsy Estimated blood loss (cc): 2 Complications: None; Tolerated procedure well Indications: Left upper lobe nodule biopsy Procedure Performed: CT guided lung nodule biopsy Site/Technique: CT guided left upper lobe nodule biopsy Results/Findings (any specimens removed): CT guided left upper lobe nodule biopsy Post Procedure Treatment Plan: CXR's pending Specimen: 5 20 gauge core needle biopsies
--- NOTE | 2018-12-13 13:34 | IR Procedure Note ---
Date of procedure: 12/13/18 Consent Obtained: Verbal consent, Written consent Timeout: Correct patient and procedure verified, Correct site verified, Time out performed, Skin prep completed Local anesthetic: Lidocaine 1% Was there an engineering inspection assistant present: No Results/Findings: Left chest tube placed in CT Estimated blood loss (cc): 1 Complications: None; Tolerated procedure well Indications: Left PTX Procedure Performed: Left chest tube placement Site/Technique: 8 fr left chest tube placed in CT Results/Findings (any specimens removed): Moderate left PTX Post Procedure Treatment Plan: Chest tube to suction Specimen: none
[2018-12-13] MEDS ORDERED: Acetaminophen 325 MG TABLET PO PRN (15:19)
[2018-12-13] MEDS ORDERED: *HR* HYDROcodone/Acet 5/325 mg TABLET PO PRN (15:19)
[2018-12-13] MEDS ORDERED: *HR* OxyCODONE Immed Rel 5 MG TABLET PO PRN (15:19)
[2018-12-13] MEDS ORDERED: Ondansetron 4 MG/2 ML VIAL IVP PRN (15:19)
[2018-12-13] MEDS ORDERED: Naloxone 0.4 MG/ML INJ IVP PRN (15:19)
--- NOTE | 2018-12-13 16:15 | Pulmonology Consult Note ---
Date of Encounter: 12/13/18 Time of Encounter: 16:15 Assessment and Plan (1) Iatrogenic pneumothorax Current Visit: Yes Status: Acute I have seen and examined the patient in the presence of the nurse and there is no third leak at this time with complete resolution of the pneumothorax after placement of the chest tube. We will leave chest tube on the suction and pain management with encouraging patient to do incentive spirometry. I have instructed the nurse to place chest tube to waterseal tomorrow morning and then have chest x-ray if there is no significant improvement, or patient becomes symptomatic then needs to have it on suction again, otherwise perhaps chest tube can be removed. Will continue follow up and thanks for the consult. (2) COPD (chronic obstructive pulmonary disease) Current Visit: Yes Status: Chronic Continue bronchodilators. Qualifiers: COPD type: unspecified COPD Qualified Code(s): J44.9 - Chronic obstructive pulmonary disease, unspecified (3) RAMA (obstructive sleep apnea) Current Visit: Yes Status: Chronic Avoid positive airway pressure at this time a History of Present Illness Consult date: 12/13/18 Requesting physician: Rama Washington Reason for consult: pneumothorax Chief complaint: Left side pneumothorax History of present illness: This is a pleasant 58 year male who came to the hospital today to have his lung lesion biopsied and unfortunately complication happened with pneumothorax. This has been treated by placement of chest tube and pulmonary consulted to manage chest tube. Patient has been seen in the pulmonary office. He has significant history of COPD and he has RAMA. Patient had bronchoscopy with EBUS and follow up CT showed enlargement of the left upper lobe nodule and had CT guided transthoracic biopsy. Patient has some chest pain now and no evidence of any air leak. He denies any changes in his baseline productive cough, wheezing and no hemoptysis. Past Med Surg Social Fam HX - Past Medical History Medical history: COPD, hypertension Additional medical history: carpal tunnel Psychiatric history: no psych history - Past Surgical History Surgical History: colectomy, herniorrhaphy Additional surgical history: RIH repair, exploratory lap - Social History Smoking Status: Former smoker Smokeless Tobacco Status: No Alcohol use: rarely Drug use: none - Family History Mother Hx Family Endocrine Disorder: Yes (DM) Sister Hx Family Cardiac Disorders: Yes (CT) Medications and Allergies Lisinopril [Zestril] 20 mg PO DAILY 07/25/16 [History] Metoprolol [Lopressor] 25 mg PO BID 07/25/16 [History] hydroCHLOROthiazide [Hydrochlorothiazide] 25 mg PO DAILY 07/25/16 [History] Albuterol Sulfate [Ventolin Hfa] 2 puff IH Q6H PRN 09/10/18 [History] Cetirizine HCl [24Hour Allergy] 10 mg PO DAILY 09/10/18 [History] Fluticasone Propionate Nasal [Flonase] 2 spr NS DAILY PRN 09/10/18 [History] Fluticasone/Vilanterol [Breo Ellipta 200-25 Mcg INH] 1 puff IH DAILY 09/10/18 [History] Ipratropium [ATROVENT Inhaler] 2 puff IH TID PRN 09/10/18 [History] Allergy/AdvReac Type Severity Reaction Status Date / Time No Known Allergies Allergy Verified 09/10/18 11:01 All Systems: The remainder of the systems were reviewed and are negative Physical Examination Vital Signs: Vital Signs, Last 4 Hours Temp Pulse Resp BP Pulse Ox 12/13/18 14:19 98.7 F 69 20 142/88 98 12/13/18 12:26 60 120/52 100 General appearance: appears uncomfortable Eyes: nonicteric ENT: oropharynx dry Neck: supple Effort: normal Auscultation: left: other (chest tube), bilateral: rhonchi Cardiovascular: regular rate and rhythm Gastrointestinal: normoactive bowel sounds, non-distended Extremities: no cyanosis, edema normal mental status, non-focal exam mood appropriate Results - Diagnostic Findings Chest x-ray: report reviewed, image reviewed - Clinical Findings Intake & Output: Intake & Output 12/13/18 12/13/18 12/13/18 07:59 15:59 23:59 Weight 139 kg Consult Discharge Plan - Plan Referrals: Nel[facility], TOOTH CUTTER [Primary Care Provider] -
--- NOTE | 2018-12-13 16:52 | Internal Med History&Physical ---
Date of Encounter: 12/13/18 Time of Encounter: 16:52 Internal Medicine - H&P: HPI Chief complaint: Chest tube placement Admitted From: Intrahospital Transfer Plans for Post Hospital Care: Home History of present illness: Mr. Delgado is a 58 year old male past medical history of COPD hypertension former smoker RAMA. Patient has been monitored and workup completed by all Bon as outpatient for left upper lobe lung nodules which appear speculated and enlarging. He did undergo bronchoscopy in September 2018 and 0 bronchial ultrasound and transbronchial needle aspiration of mediastinal lymph nodes did not show any evidence of malignancy. He had a repeat CT scan which showed enlarging left upper lobe nodule PET CT scan is hypermetabolic. He presented to [facility] to undergo a CT-guided transthoracic biopsy during the procedure patient developed pneumothorax and chest tube was placed. Repeat chest x-ray does show resolution of pneumothorax. We will continue with continuous low wall suction at this time as well as pain management and incentive spirometry. Pulmonology has been consulted. Currently patient does not appear to be in any respiratory distress his only complaints is pain at the insertion site of chest tube. Discussed treatment plan with the patient who verbalized understanding Past Med Surg Social Fam HX - Past Medical History Medical history: COPD, hypertension Additional medical history: carpal tunnel Psychiatric history: no psych history - Past Surgical History Surgical History: colectomy, herniorrhaphy Additional surgical history: RIH repair, exploratory lap - Social History Smoking Status: Former smoker Smokeless Tobacco Status: No Alcohol use: rarely Drug use: none - Family History Mother Hx Family Endocrine Disorder: Yes (DM) Sister Hx Family Cardiac Disorders: Yes (RI) Internal Medicine - H&P: Meds Lisinopril [Zestril] 20 mg PO DAILY 07/25/16 [History] Metoprolol [Lopressor] 25 mg PO BID 07/25/16 [History] hydroCHLOROthiazide [Hydrochlorothiazide] 25 mg PO DAILY 07/25/16 [History] Albuterol Sulfate [Ventolin Hfa] 2 puff IH Q6H PRN 09/10/18 [History] Cetirizine HCl [24Hour Allergy] 10 mg PO DAILY 09/10/18 [History] Fluticasone Propionate Nasal [Flonase] 2 spr NS DAILY PRN 09/10/18 [History] Fluticasone/Vilanterol [Breo Ellipta 200-25 Mcg INH] 1 puff IH DAILY 09/10/18 [History] Ipratropium [ATROVENT Inhaler] 2 puff IH TID PRN 09/10/18 [History] Allergy/AdvReac Type Severity Reaction Status Date / Time No Known Allergies Allergy Verified 09/10/18 11:01 All Systems PM: A 10-system review of systems was performed and is negative for pertinent findings except as documented above in the HPI. - Constitutional Constitutional: no chills, no fever(s), no night sweats - EENT Eyes: no change in vision, no discharge, no pain, no photophobia Ears: no ear discharge, no ear pain, no tinnitus Nose, mouth and throat: no dysphagia, no nasal discharge, no neck pain, no sore throat - Cardiovascular Cardiovascular ROS IM: no chest pain, no diaphoresis, no dyspnea, no lightheadedness, no palpitations, no syncope - Respiratory Respiratory: no cough, no dyspnea, no wheezing, no excessive phlegm production - Gastrointestinal Gastrointestinal: no abdominal pain, no diarrhea, no hematemesis, no hematochezia, no melena, no nausea, no vomiting - Musculoskeletal Musculoskeletal ROS IM: no numbness, no tingling - Integumentary Integumentary IM: no rash, no unusual bruising - Neurological Neurological ROS: no confusion, no convulsions, no focal weakness, no numbness, no tingling, no tremor(s) - Hematologic/Lymphatic Hematologic/Lymphatic: no easy bruising - Constitutional Vitals: Temp Pulse Resp BP Pulse Ox 97.5 F L 73 20 167/91 94 12/13/18 16:33 12/13/18 16:33 12/13/18 16:33 12/13/18 16:33 12/13/18 16:33 General appearance: Present: A&O X 3 Exam: . - Head Head exam: Present: atraumatic, normocephalic - Eye Eye exam: Present: PERRL, conjuntiva pink, sclera anicteric Pupils: Present: PERRL - Neck Neck exam general surgery: Present: supple, trachea midline. Absent: lymphadenopathy - Respiratory Respiratory exam: Present: wheezes. Absent: accessory muscle use, rales, rhonchi Additional comments: Chest tube to left upper chest with no crepitus redness or drainage - Cardiovascular Cardiovascular exam: Present: RRR, +S1, +S2. Absent: diastolic murmur, gallop, rubs, systolic murmur - GI/Abdominal GI/Abdominal exam: Present: normal bowel sounds, soft, no peritoneal signs. Absent: distended, tenderness - Extremities Exam Extremities exam: Present: warm, radial pulses palpable and symmetrical. Absent: calf tenderness, cyanotic, pedal edema - Neurological Exam Neurological exam: Present: CN II-XII intact, oriented X3, no focal deficits. Absent: pronater drift, facial droop, speech deficit - Skin Skin exam: Present: dry, intact Internal Med - H&P Results - Impressions ITS Impressions Needle Aspiration CT 12/13/18 00:00 IMPRESSION: CT-guided placement of a left-sided chest tube secondary to a pneumothorax which developed during today's lung biopsy. No immediate complications. The catheter has been placed to continuous suction. D/ / 12/13/2018 14:09:35 Lucas Osborne MD / theresa Interpreting Provider: Lucas Osborne MD Chest X-Ray 12/13/18 10:50 IMPRESSION: Left pneumothorax status post biopsy of left lung mass. D/ / 12/13/2018 11:34:23 Yvan Johnson MD / theresa Interpreting Provider: Yvan Johnson MD Lung Biopsy CT 12/13/18 11:15 IMPRESSION: 1. CT-guided core needle left upper lobe nodule biopsy. Pathology is pending. 2. A small biopsy related pneumothorax developed during the procedure. Short-term chest x-ray follow-up is planned, as the pneumothorax is not large enough to warrant chest tube placement at this time. D/ / Lucas Osborne MD / Lucas Osborne MD Interpreting Provider: Lucas Osborne MD Chest X-Ray 12/13/18 11:50 IMPRESSION: Mild interval increase in size of left pneumothorax status post left lung biopsy. The findings were sent to the Radiology Results Communication Center at 11:57 am on 12/13/2018to be communicated to a licensed caregiver. D/ / Megan Reinoso MD / Megan Reinoso MD Interpreting Provider: Megan Reinoso MD Chest X-Ray 12/13/18 15:53 IMPRESSION: Successful evacuation of the left pneumothorax following placement of a small bore pigtail left chest tube. D/ / Lazaro Gresham MD / Lazaro Gresham MD Interpreting Provider: Lazaro Gresham MD - Assessment and Plan (1) RAMA (obstructive sleep apnea) Current Visit: Yes Status: Acute Assessment and plan: Continue with CPAP (2) Iatrogenic pneumothorax Current Visit: Yes Status: Acute Assessment and plan: Patient underwent transthoracic biopsy sustained pneumothorax during procedure had a chest tube placed -chest x-ray postprocedure shows resolution of pneumothorax. Continue with low wall suction Continue with pain management Continue with incentive spirometry Pulmonology has been consulted and recommending water seal and a.m. repeat chest x-ray if there is no significant improvement or patient becomes symptomatic resume suction otherwise chest tube may be removed per pulmonology (3) DVT prophylaxis Current Visit: No Status: Acute (4) HTN (hypertension) Current Visit: No Status: Chronic Assessment and plan: Continued home medications Qualifiers: Hypertension type: essential hypertension Qualified Code(s): I10 - Essential (primary) hypertension (5) Mass of left lung Current Visit: No Status: Chronic Assessment and plan: Left upper lobe lung nodule spiculated and enlarging Managed per pulmonology patient will follow up as outpatient for results of biopsy - Time Spent With Patient Total time spent is greater than 50% in coordination of care (as documented) at patient's floor/unit and/or counseling patient:
[2018-12-13] MEDS: Ipratropium/Albuterol Neb 3 ML IH PRN (21:00)
[2018-12-13] MEDS ORDERED: Acetaminophen IV 500 MG/50 ML INFUS..BTL IVPB ONE (22:48)
[2018-12-14 03:25] LABS: Basophils % 0.4 %; Eosinophils # 0.1 K/mcL (0.0-0.6); Eosinophils % 1.1 %; Hematocrit 44.3 % (37.5-50.1); Hemoglobin 14.9 g/dL (12.9-16.9); Immature Granulocytes % 0.2 % (0-4); Lymphocytes # 1.4 K/mcL (0.6-4.6); Lymphocytes % 26.3 %; Mean Corpuscular HGB Conc 33.6 g/dL (31.6-35.5); Mean Corpuscular Volume 92.3 fL (83.0-100.0); Mean Platelet Volume 11.2 fL (9.4-12.4); Monocytes # 0.6 K/mcL (0.0-1.3); Monocytes % 10.6 %; Neutrophils # 3.3 K/mcL (1.6-8.9); Platelet Count 145 K/mcL (140-400); Red Cell Distribution Width 12.7 % (11.5-14.5); Segmented Neutrophils % 61.4 %; White Blood Count 5.3 K/mcL (4.3-11.1)
[2018-12-14] MEDS: Ipratropium/Albuterol Neb 3 ML IH PRN ×2 (04:19→07:31)
[2018-12-14 05:02] LABS: BUN/Creatinine Ratio 19 (6-26); Blood Urea Nitrogen 13 mg/dL (6-20); Carbon Dioxide 29 mEq/L (23-29); Chloride 102 mEq/L (98-107); Glucose 90 mg/dL (70-105); Osmolality,Calculated 286 (280-300); Potassium 3.6 mEq/L (3.5-5.1); Sodium 138 mEq/L (136-145); eGFR For African Americans > 60 (> 60); eGFR For Non-African Americans > 60 (> 60)
--- NOTE | 2018-12-14 08:28 | Pulmonology Progress Note ---
Date of Encounter: 12/14/18 Time of Encounter: 08:26 Assessment and Plan (1) Iatrogenic pneumothorax Current Visit: Yes Status: Acute Chest tube placed by interventional radiology and at this point looks significant be easily removable contact that service for removal repeat chest x- ray subsequently and if no pneumothorax at about an hours time patient can likely be chart discharge later in the day (2) Mass of left lung Current Visit: No Status: Chronic Follow-up outpatient pulmonary clinic within 1 week to discuss biopsy results as this is highly suspicious for primary lung neoplasia Thank you for the consultation please call with any questions Subjective Principal diagnosis: PTX Interval history: No events overnight no evidence of air leak on examination he denies any chest pain Objective PUL Vital signs: Last Vital Signs Temp 97.9 F 12/14/18 07:30 Pulse 56 12/14/18 07:30 Resp 18 12/14/18 07:31 BP 146/82 12/14/18 07:30 Pulse Ox 95 12/14/18 07:31 General appearance: no acute distress Eyes: nonicteric Effort: normal Auscultation: bilateral: wheezes (Faint expiratory wheezes bilaterally) Cardiovascular: regular rate and rhythm Gastrointestinal: normoactive bowel sounds, soft, non-tender Integumentary: normal Extremities: edema Musculoskeletal: no deformities normal mental status, non-focal exam mood appropriate Results - Laboratory Findings CBC and BMP: 12/14/18 02:23 12/14/18 04:09 Abnormal lab findings: Abnormal lab results 0.67 mg/dL (0.70-1.30) L 12/14/18 04:09 - Clinical Findings Intake & Output: Intake & Output 12/13/18 12/14/18 12/14/18 23:59 07:59 15:59 Intake Total 120 / 120 290 / 290 Output Total 450 / 450 Balance -330 / -330 290 / 290 Weight 139 kg Consult Discharge Plan - Plan Referrals: Nel[facility], FLOOR FINISHER HELPER [Primary Care Provider] -
[2018-12-14] MEDS ORDERED: hydroCHLOROthiazide 25 MG TABLET PO SCH (09:00)
[2018-12-14] MEDS ORDERED: Lisinopril 20 MG TABLET PO SCH (09:00)
[2018-12-14] MEDS ORDERED: Loratadine 10 MG TABLET PO SCH (09:00)
[2018-12-14] MEDS ORDERED: Budesonide/Formoterol 160/4.5 1 PUFF INH IH SCH (10:00)
[2018-12-14 12:42] VITALS: BP 135/75
--- NOTE | 2018-12-14 14:42 | Discharge Summary ---
- NOTES TO OUTPATIENT PROVIDER Notes to Outpatient Provider: Follow-up with pulmonology for biopsy results Date of Encounter: 12/14/18 Time of Encounter: 11:45 - Discharge Diagnosis (1) HTN (hypertension) Priority: Secondary Status: Chronic Qualifiers: Hypertension type: essential hypertension Qualified Code(s): I10 - Essential (primary) hypertension (2) DVT prophylaxis Priority: Secondary Status: Acute (3) Mass of left lung Priority: Secondary Status: Chronic (4) Iatrogenic pneumothorax Priority: Primary Status: Acute (5) RAMA (obstructive sleep apnea) Priority: Secondary Status: Chronic Hospital course: Mr. Delgado is a 58 year old male with history of COPD, hypertension, left upper lobe lung mass, who was admitted for iatrogenic PTX following CT guided bx of lung lesion. Had L chest tube placed by IR which was removed after 1 day. The 1st CXR post-removal was reported to show small L apical PTX but subsequent one done 2 hours later were unremarkable. He will be discharged home with pulmonology follow up for bx result and was advised to return to the hospital if he experiences worsening SOB. Discharge discussed with: patient, nurse, [employer] sales consultant - Time Spent with Patient Total time spent providing and/or coordinating discharge services: 27 mins - Discharge Medications Prescriptions: New Lidocaine Patch [Lidoderm 5% patch] 1 each TP DAILY #7 adh..patch Acetaminophen [Tylenol] 650 mg PO Q6HR PRN #30 tablet PRN Reason: Pain Continued Ipratropium [ATROVENT Inhaler] 2 puff IH TID Albuterol Sulfate [Ventolin Hfa] 2 puff IH Q6H PRN PRN Reason: Shortness Of Breath Fluticasone Propionate Nasal [Flonase] 2 spr NS DAILY PRN PRN Reason: Congestion Cetirizine HCl [24Hour Allergy] 10 mg PO DAILY Fluticasone/Salmeterol [Advair 250-50 Diskus] 1 puff IH BID Potassium Chloride [Klor-Con 10] 10 meq PO DAILY Metoprolol [Lopressor] 25 mg PO BID hydroCHLOROthiazide [Hydrochlorothiazide] 25 mg PO DAILY Lisinopril [Zestril] 20 mg PO DAILY Home Medications: Lisinopril [Zestril] 20 mg PO DAILY 07/25/16 [History] Metoprolol [Lopressor] 25 mg PO BID 07/25/16 [History] hydroCHLOROthiazide [Hydrochlorothiazide] 25 mg PO DAILY 07/25/16 [History] Albuterol Sulfate [Ventolin Hfa] 2 puff IH Q6H PRN 09/10/18 [History] Cetirizine HCl [24Hour Allergy] 10 mg PO DAILY 09/10/18 [History] Fluticasone Propionate Nasal [Flonase] 2 spr NS DAILY PRN 09/10/18 [History] Ipratropium [ATROVENT Inhaler] 2 puff IH TID 09/10/18 [History] Acetaminophen [Tylenol] 650 mg PO Q6HR PRN #30 tablet 12/14/18 [Rx] Fluticasone/Salmeterol [Advair 250-50 Diskus] 1 puff IH BID 12/14/18 [History] Lidocaine Patch [Lidoderm 5% patch] 1 each TP DAILY #7 adh..patch 12/14/18 [Rx] Potassium Chloride [Klor-Con 10] 10 meq PO DAILY 12/14/18 [History] Allergies/Adverse Reactions: Allergy/AdvReac Type Severity Reaction Status Date / Time No Known Allergies Allergy Verified 09/10/18 11:01 Date of admission: 12/13/18 15:19 Primary care physician: Nelida Heart CNP Consults: 12/14/18 08:56 Consult to Interventional Radiology [CONS] Routine Consulting Provider: Radiology Interventional Cols Reason for Consult: Pull chest tube Call Completed: Yes - Constitutional Vitals: Temp Pulse Resp BP Pulse Ox 97.9 F 61 14 135/75 94 12/14/18 11:50 12/14/18 11:50 12/14/18 11:50 12/14/18 12:40 12/14/18 11:50 General appearance: Present: A&O X 3 Exam: General: Alert and oriented, not in acute distress. Cardiovascular:Normal S1 & S2, No JVD. Pulse regular. Lungs: clear to auscultation bilaterally, no wheezes/rales Abdomen:Soft, non-tender, no rigidity. Extremities:No deformity or swelling Neurological:Normal cognition and motor skills. Non-focal - Patient Status Disposition: Home, Self-Care Condition: Fair Overall status at discharge: patient is progressing back to baseline - Discharge Instructions Instructions: Chronic Obstructive Pulmonary Disease (DC) Follow Up With: Nelida Heart CNP [Primary Care Provider] - Additional Instructions: Follow up with Pulmonology as outpatient - Diet and Activity Activity: resume usual activities as tolerated Diet: regular diet
[2018-12-14] MEDS ORDERED: Fluticasone Propionate Nasal 50 MCG/SPRAY BOTTLE NS PRN (14:44)
== END 2018-12-14 16:20 | disposition home or self-care (01) ==
LOC: RAD 09:30 → 2NENU 09:30 → SUATTDRO 15:19
PROVIDERS: ADMIT Internal Medicine Nephrology; ATTEND Internal Medicine